=== PATIENT | female | born 1935 | race Caucasian/White ===

== ENCOUNTER 2016-08-23 20:04 | Emergency (ER) | payer MEDICARE, BC ==
[~2016-08-23] VITALS: Ht 160 cm; Wt 63.8 kg
[~2016-08-23 20:04] MED LIST: ACET-2321 PO; ALBU8.5H INH; CALC-1012 PO; CLOP75TA13 PO; FERR324T4 PO; FEXO180T56 PO; FLUT9.9S NAS; LISI10TA7 PO; MOME17SP2 EA NOSTRIL; OMEP-29 PO; PRAV40TA46 PO; TRIM100T PO
--- OUTSIDE RECORDS SUMMARY | 2016-08-23 20:09 | XMS REPORT | Continuity of Care Document ---
Author Author [facility] Organization [facility] Address Unknown Phone Unavailable Support Name Relationship Address Phone ELIER MENDEZ MD Caregiver [address] [place] [address] [place] [phone] AURORA RALPH MD Caregiver [address] [place] [address] DR GUERRA [place] [phone] JOEL KASSIE Next Of Kin Unknown [phone] Insurance Providers Payer Name Policy Number Subscriber Name Relationship Medicare [id number] Theodora Forbes 19 Self [facility] [id number] Theodora Forbes 18 Self Advance Directives Directive Response Recorded Date/Time Advanced Directives Type DPOA for Healthcare 10/17/13 10:33pm Ordered Resuscitation Status Full Code, unverified 10/17/13 9:28pm Resuscitation Documents on File Yes 10/17/13 10:33pm Problems Medical Problems Problem Onset Date Status Influenza B ~10/14/2012 Active Influenza B Unknown Active Hyponatremia ~10/2013 Active Hypoxia ~10/2013 Resolved Influenza B Unknown Active Asthma with acute exacerbation ~10/2013 Resolved Insufficiency, respiratory, acute ~10/2013 Resolved Dehydration ~10/2013 Resolved History of CHF (congestive heart failure) Unknown Active Hypertension Unknown Active Acute sinusitis Unknown Active History of sarcoidosis Unknown Resolved Protein-calorie malnutrition, mild Unknown Active Medications Medication Dose Route Sig Days/Qty Instructions Order Date Discontinued Date Status Salmeterol Xinafoate/Fluticasone 1 Disk IH TWICE A DAY 10/31/09 Active Albuterol Sulfate 8.5 Gm INH Q4H PRN ASTHMA 10/31/09 Active Fexofenadine Hcl 180 Mg PO DAILY 10/31/09 Active Lisinopril/Hydrochlorothiazide 1 Tab PO DAILY 10/31/09 Active Mometasone Furoate 17 Gm NS PRN 10/31/09 10/26/13 Discontinued Omeprazole 20 Mg PO DAILY 03/04/12 Active Furosemide 40 Mg PO DAILY PRN EDEMA 03/04/12 Active Clopidogrel Bisulfate 75 Mg PO DAILY 10/17/13 Active Pravastatin Sodium 40 Mg PO DAILY 10/17/13 Active Ciprofloxacin Hcl 500 Mg PO TWICE A DAY 10/17/13 10/26/13 Discontinued Fluticasone Propionate 16 Gm NS DAILY 30 Days 10/26/13 04/07/14 Discontinued Prednisone 60 Mg PO DAILY 13 Days 10/26/13 10/26/13 Discontinued Mometasone Furoate 1 [place] EA NOSTRIL TWICE A DAY 04/07/14 Active Social History Social History Problem Response Recorded Date/Time Hx Substance Use No 07/23/2014 8:51am Hx Alcohol Use No 07/23/2014 8:51am Has the pt used tobacco in the last 12 months No 08/25/2014 8:31am Tobacco Usage none 10/18/2013 9:19am Query Response Start Date Stop Date Smoking Status Former smoker Hospital Discharge Instructions No hospital discharge instructions. Plan of Care No plan of care. Functional Status Query Response Date Recorded Physical Hygiene Self October 26, 2013 3:51pm Disabilities Hearing Visual October 26, 2013 3:51pm Devices Used Glasses October 26, 2013 3:51pm Dressing Self October 26, 2013 3:51pm Ambulation Self October 26, 2013 3:51pm Diet Self October 26, 2013 3:51pm Mental Status Alert Oriented October 26, 2013 3:51pm Disabilities Hearing Visual October 26, 2013 3:51pm Devices Used Glasses October 26, 2013 3:51pm Physical Hygiene Self October 26, 2013 3:51pm Dressing Self October 26, 2013 3:51pm Ambulation Self October 26, 2013 3:51pm Diet Self October 26, 2013 3:51pm Allergies, Adverse Reactions, Alerts Allergen Type Severity Reaction Status Last Updated hydrocodone bit Adverse Reaction Mild "MAKES ME CRAZY" Active 08/25/14 Penicillin Allergy Unknown UNKNOWN Active 08/25/14 Sulfa (Sulfonamide Antibiotics) Allergy Unknown UNKNOWN Active 08/25/14 Alprazolam Allergy Unknown UNKNOWN Active 08/25/14 Morphine Adverse Reaction Mild "MAKES ME CRAZY" Active 08/25/14 Codeine Adverse Reaction Mild "MAKES ME CRAZY" Active 08/25/14 Cephalexin Allergy Severe DIARRHEA Active 08/25/14 Doxycycline Allergy Unknown UNKNOWN Active 08/25/14 Erythromycin base Allergy Unknown UNKNOWN Active 08/25/14 Immunizations Name Given Type Hx Influenza Vaccination Y 02/2014 Historical Hx Pneumococcal Vaccination Y 02/2014 Historical Hx Influenza Vaccination Y 02/2014 Historical Vital Signs Acute Vital Signs Vital Response Date/Time Temperature (Fahrenheit) 96.6 deg F (96.8 - 99.1) Temperature (Calculated Celsius) 35.54123 degrees C (36.0 - 37.3) Pulse Rate (adult) 72 bpm (60 - 100) Respiratory Rate 16 breaths/min (10 - 20) O2 Sat by Pulse Oximetry 98 % (90 - 100) Oxygen Delivery Method Room Air Blood Pressure 139/67 mm Hg Blood Pressure Source Automatic Cuff Height 5 ft 2.5 in Weight 144 lb Body Mass Index 25.0 kg/m^2 Results Test Source Date Result Interp. Ref. Range Comments Gentamicin Level Trough August 26, 2014 6:12pm 1.5 UG/ML N 0-2 COMMENT DRAW BEFORE 4/9 AM DOSE. PER GENTAMICIN PROTOCOL Alanine Aminotransferase (ALT/SGPT) August 02, 2014 10:55am 21 U/L N 9- 52 CALL RESULTS TO 284-5080 Albumin August 02, 2014 10:55am 4.5 G/DL N 3.5-5.0 CALL RESULTS TO 284- 5080 Albumin/Globulin Ratio August 02, 2014 10:55am 1.4 RATIO N 1.1-2.2 CALL RESULTS TO 284-5080 Alkaline Phosphatase August 02, 2014 10:55am 92 U/L N 38-126 CALL RESULTS TO 284-5080 Anion Gap August 02, 2014 10:55am 18 MEQ/L H 5-15 CALL RESULTS TO 284- 5080 Aspartate Amino Transf (AST/SGOT) August 02, 2014 10:55am 20 U/L N 14-36 CALL RESULTS TO 284-5080 BUN/Creatinine Ratio August 02, 2014 10:55am 24 RATIO N 6-26 CALL RESULTS TO 284-5080 Band Neutrophils # October 21, 2013 4:34am 0.1 T/MM3 - Band Neutrophils % October 21, 2013 4:34am 1.0 % N 0-6 Basophils # (Auto) July 26, 2014 8:36am 0.0 T/MM3 N 0-0.2 Basophils (%) (Auto) July 26, 2014 8:36am 0.4 % N 0-2 Blood Urea Nitrogen August 02, 2014 10:55am 19.0 MG/DL H 7-17 CALL RESULTS TO 284-5080 Calcium Level August 02, 2014 10:55am 10.2 MG/DL N 8.4-10.2 CALL RESULTS TO 284-5080 Calculated Osmolality August 02, 2014 10:55am 270 MOSM/KG N 261-280 CALL RESULTS TO 284-5080 Carbon Dioxide Level August 02, 2014 10:55am 21 MEQ/L L 22-30 CALL RESULTS TO 284-5080 Chemistry Specimen Hemolysis August 02, 2014 10:55am < 15 0-25 0-25: No Hemolysis.26-70: Slight Hemolysis - can falsely elevate K and Urine Protein. 71-285: Moderate Hemolysis - can falsely elevate K, Troponin I, CA 19-9, PTH, CSF GLucose, and Urine Protein, and can falsely decrease Phenytoin. 286-999: Gross Hemolysis - can falsely elevate K, Troponin I, CA 19-9, PTH, CSF Glucose, and Urine Protine, and can falsely decrease Phenytoin. Recommend specimen recollection. Chloride Level August 02, 2014 10:55am 99 MEQ/L N 98-107 CALL RESULTS TO 284-5080 Creatinine August 26, 2014 6:12pm 0.7 MG/DL N 0.7-1.2 COMMENT PER GENTAMICIN PROTOCOL, WITH GENT TROUGH. Eosinophils # (Auto) July 26, 2014 8:36am 0.2 T/MM3 N 0-0.5 Eosinophils # (Manual) October 19, 2013 4:36am 0.1 T/MM3 N 0-0.5 Eosinophils % (Manual) October 19, 2013 4:36am 1.0 % N 0-4 Eosinophils (%) (Auto) July 26, 2014 8:36am 4.5 % H 0-4 Globulin August 02, 2014 10:55am 3.3 G/DL N 2.4-3.6 CALL RESULTS TO 284- 5080 Glomerular Filtration Rate Calc August 26, 2014 6:12pm 81 - COMMENT PER GENTAMICIN PROTOCOL, WITH GENT TROUGH. Glucose Level August 02, 2014 10:55am 136 MG/DL H 65-110 CALL RESULTS TO 284-5080 Hematocrit July 26, 2014 8:36am 42.9 % N 36-46 Hemoglobin July 26, 2014 8:36am 14.1 GM/DL N 12-16 Icterus Index August 02, 2014 10:55am < 2 0-7 CALL RESULTS TO 284-5080 Immature Granulocyte # (Auto) July 26, 2014 8:36am 0.01 T/MM3 N 0.00- 0.03 Immature Granulocyte % (Auto) July 26, 2014 8:36am 0.2 % N 0.0-0.5 Influenza Type A Antigen October 17, 2013 7:45pm Negative - Negative for Flu A protein antigen. Assay sensitivity is90%. Influenza Type B Antigen October 17, 2013 7:45pm Positive - Lab Scanned Report August 02, 2014 12:35pm LAB TEST FORM REQUEST - Lymphocytes # (Auto) July 26, 2014 8:36am 1.1 T/MM3 N 1-4.8 Lymphocytes # (Manual) October 21, 2013 4:34am 0.3 T/MM3 L 1-4.8 Lymphocytes % (Manual) October 21, 2013 4:34am 3.0 % L 23-45 Lymphocytes (%) (Auto) July 26, 2014 8:36am 23.6 % N 23-45 Magnesium Level October 19, 2013 4:36am 1.9 MG/DL N 1.6-2.3 Mean Corpuscular Hemoglobin July 26, 2014 8:36am 29.4 UUG N 26-34 Mean Corpuscular Hemoglobin Concent July 26, 2014 8:36am 32.9 GM/DL N 31-37 Mean Corpuscular Volume July 26, 2014 8:36am 89.6 UM3 N 80-100 Mean Platelet Volume July 26, 2014 8:36am 8.5 UM3 L 9.4-12.4 Monocytes # (Auto) July 26, 2014 8:36am 0.5 T/MM3 N 0-0.8 Monocytes # (Manual) October 21, 2013 4:34am 0.2 T/MM3 N 0-0.8 Monocytes % (Manual) October 21, 2013 4:34am 2.0 % N 0-9.0 Monocytes (%) (Auto) July 26, 2014 8:36am 11.2 % H 0-9.0 Monoscreen October 17, 2013 6:59pm Negative - Neutrophils # (Auto) July 26, 2014 8:36am 2.7 T/MM3 N 1.8-7.7 Neutrophils # (Manual) October 21, 2013 4:34am 8.4 T/MM3 H 1.8-7.7 Neutrophils % (Manual) October 21, 2013 4:34am 94.0 % H 33-66 Neutrophils (%) (Auto) July 26, 2014 8:36am 60.1 % N 33-66 Phosphorus Level October 19, 2013 4:36am 2.6 MG/DL N 2.5-4.5 Platelet Count July 26, 2014 8:36am 236 T/MM3 N 130-400 Potassium Level August 02, 2014 10:55am 4.0 MEQ/L N 3.6-5 CALL RESULTS TO 284-5080 Prealbumin October 18, 2013 5:12am 12.1 MG/DL L 17.6-36.0 COMMENT may use blood in lab Procalcitonin October 18, 2013 5:12am < 0.05 NG/ML - PCT </=0.5 ng/mL - sepsis not likely;PCT >0.5 and </=2 ng/mL - sepsis possible; PCT >2 ng/mL - sepsis likely; PCT >/=10 ng/mL - systemic inflammatory response - sepsis or septic shock highly indicated. RDW Standard Deviation July 26, 2014 8:36am 43.0 FL N 36.9-50.2 Red Blood Count July 26, 2014 8:36am 4.79 M/MM3 N 4.00-5.20 Sodium Level August 02, 2014 10:55am 138 MEQ/L N 134-144 CALL RESULTS TO 284-5080 Thyroid Stimulating Hormone (TSH) October 18, 2013 5:12am 0.26 MIU/L L 0.47 -4.68 COMMENT may use blood in lab Total Bilirubin August 02, 2014 10:55am 0.80 MG/DL N 0.20-1.30 CALL RESULTS TO 284-5080 Total Protein August 02, 2014 10:55am 7.8 G/DL N 6.3-8.2 CALL RESULTS TO 284-5080 Troponin I October 17, 2013 6:59pm < 0.012 ng/ml 0-0.12 Turbidity August 02, 2014 10:55am < 20 0-20 CALL RESULTS TO 284-5080 Urinalysis Comment October 17, 2013 10:45pm Microscopic not ind. - Has specimen been collected/obtained? Y Urine Bacteria August 06, 2009 2:01pm 4+ - AGRICULTURE INTERN Urine Bilirubin October 17, 2013 10:45pm Negative - Has specimen been collected/obtained? Y Urine Blood October 17, 2013 10:45pm Negative - Has specimen been collected/obtained? Y Urine Collection Type October 17, 2013 10:45pm Cleancatch-midstream - Has specimen been collected/obtained? Y Urine Color October 17, 2013 10:45pm Yellow - Has specimen been collected /obtained? Y Urine Culture Indicated August 06, 2009 2:01pm Cult set up - [facility] Urine Glucose (UA) October 17, 2013 10:45pm Negative - Has specimen been collected/obtained? Y Urine Ketones October 17, 2013 10:45pm 1+ H - Has specimen been collected/ obtained? Y Urine Leukocyte Esterase October 17, 2013 10:45pm Negative - Has specimen been collected/obtained? Y Urine Nitrite October 17, 2013 10:45pm Negative - Has specimen been collected/obtained? Y Urine Protein October 17, 2013 10:45pm Negative - Has specimen been collected/obtained? Y Urine RBC August 06, 2009 2:01pm 3-5 /HPF - [facility] Urine Specific [place] October 17, 2013 10:45pm 1.025 - Has specimen been collected/obtained? Y Urine Squamous Epithelial Cells August 06, 2009 2:01pm Moderate - [facility] Urine Turbidity October 17, 2013 10:45pm Sl cloudy - Has specimen been collected/obtained? Y Urine Urobilinogen October 17, 2013 10:45pm 0.2 EU/DL - Has specimen been collected/obtained? Y Urine WBC August 06, 2009 2:01pm 50-200 /HPF - [facility] Urine pH October 17, 2013 10:45pm 6.5 - Has specimen been collected/ obtained? Y Venous Blood Lactate October 17, 2013 6:59pm 1.0 MMOL/L N 0.6-2.2 Vitamin B12 Level October 18, 2013 5:12am 420 PG/ML N 239-931 COMMENT may use blood in lab White Blood Count July 26, 2014 8:36am 4.5 T/MM3 N 4.5-11.0 Blood Culture Blood October 17, 2013 7:05pm NO GROWTH AFTER 5 DAYS Urine Culture Urine, Clean Catch Voided August 06, 2009 2:23pm Escherichia Coli Procedures Procedure Status Date Provider(s) METABOLIC PANEL TOTAL CA completed 06/07/14 ROUTINE VENIPUNCTURE completed 07/26/14 CYSTOSCOPY AND TREATMENT completed 07/26/14 AURORA RALPH MD METABOLIC PANEL TOTAL CA completed 07/26/14 COMPLETE CBC W/AUTO DIFF WBC completed 07/26/14 [id number] ITEM OR SERVICE completed 07/26/14 [id number] ITEM OR SERVICE completed 07/26/14 PROPOFOL INJ 500 MG/50ML completed 07/26/14 [id number]"RINGERS LACTATE INFUSION, UP TO 1000 CC" completed 07/26/14 COMPREHEN METABOLIC PANEL completed 08/02/14 Encounters Encounter Location Date/Time Discharged [facility] 08/31/14 7:30am Registered [facility] 08/02/14 11:08am Registered [facility] 06/07/14 9:26am
[2016-08-23 20:10] VITALS: Ht 160 cm; Wt 63.8 kg
--- OUTSIDE RECORDS SUMMARY | 2016-08-23 20:10 | XMS REPORT | Continuity of Care Document ---
Author Author [facility] Organization [facility] Address Unknown Phone Unavailable Allergies Medications Problems Procedures Results Encounters ACCT No. Visit Date/Time Discharge Status Pt. Type Provider Facility Loc./Unit Complaint [id number] 07/22/2013 10:25:00 07/22/2013 23 :59:59 CLS Outpatient [id number] 07/15/2013 13:56:00 07/15/2013 23 :59:59 CLS Outpatient [id number] 06/22/2013 13:12:00 06/22/2013 23 :59:59 CLS Outpatient [id number] 06/01/2013 15:15:00 06/01/2013 23 :59:59 CLS Outpatient [id number] 05/28/2013 12:00:00 05/28/2013 23 :59:59 CLS Outpatient
--- OUTSIDE RECORDS SUMMARY | 2016-08-23 20:11 | XMS REPORT | Referral Summary ---
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 Name Role Phone Rosette Travis Primary Care Physician [phone] Encounter Date(s): 03/28/16 - 03/28/16 [facility], [address] [place] [id number]- Discharge Diagnosis: Cause of injury, accidental fall Discharge Diagnosis: Acute bacterial sinusitis Discharge Diagnosis: Infected skin tear Discharge Disposition: 01-Home or Self Care Attending Physician: Toña Travis DO Admitting Physician: Toña Travis DO Vital Signs Most recent to 1 oldest [Reference Range]: Temperature Tympanic 37.1 degC [36.6-38.1 degC] (03/28/16 10:31 AM) Peripheral Pulse 73 bpm Rate [60-100 bpm] (03/28/16 10:31 AM) Blood Pressure 104/58 mmHg [90-140/60-90 mmHg] (03/28/16 10:31 AM) SpO2 97 % (03/28/16 10:31 AM) Problem List Condition Effective Dates Status Health Status Informant Allergies(Confirmed) Resolved Asthenia(Confirmed) Active Asthma without Active status asthmaticus (disorder)(Confirmed ) Asthma(Confirmed) Active Bladder muscle Active dysfunction - overactive (disorder)(Confirmed ) Breast 08/2009 Active cancer(Confirmed)1 Cataract Active (disorder)(Confirmed ) Chronic Active trigonitis(Confirmed ) Closed fracture of 05/27/13 Active metacarpal base of finger(Confirmed)2 Congestive heart 09/2009 Active failure (disorder)(Confirmed ) Generalized Active osteoarthritis (disorder)(Confirmed ) Encounter for Active long-term (current) use of other medications(Confirme d) Essential Active hypertension (disorder)(Confirmed ) Female urinary Active stress incontinence (finding)(Confirmed) Gastroesophageal Active reflux disease (disorder)(Confirmed ) History of Resolved sepsis(Confirmed) Hypertension(Confirm Active ed) Hypertonicity of Active bladder(Confirmed) ISD(Confirmed) Resolved Breast 1981 Active cancer(Confirmed)3 Osteoarthritis(Confi Active rmed) Sarcoidosis(Confirme Resolved d) Chronic periscapular Active pain(Confirmed) Shoulder joint pain Active (finding)(Confirmed) Stress Active incontinence(Confirm ed) Transient ischemic 03/04/12 Resolved attack(Confirmed) Urge incontinence of Active urine (finding)(Confirmed) Chicken Active pox(Confirmed) Varicella Resolved zoster(Confirmed) 9:24 CDT - Toña Weiss 22 lymph nodes neg 2WC DOI 05/27/13 FX MCP BASE CLOSED 322 lymph nodes neg Allergies, Adverse Reactions, Alerts Substance Reaction Severity Status ALPRAZolam Active codeine Active doxycycline Active erythromycin Active HYDROcodone Active Keflex Active morphine Active penicillin Active Sulfanilamide Active Xanax1 Active 1PT. REPORTS SHE WAS GIVEN MEDICATION YEARS AGO AND HAD A REACTION. Medications albuterol 2.5 mg/3 mL (0.083%) inhalation solution 2.5 mg 3 mL, Inhalation, q6hr, Shortness of Breath/Wheezing, DX J45.901, # 360 mL, 6 Refill(s), Pharmacy: [id number], 3 mL Inhalation q6hr,PRN: Shortness of Breath/Wheezing,Instr:DX J45.901 Start Date: 06/14/15 Status: Ordered Carol Allergy mg, Oral, Daily, 0 Refill(s) Start Date: 10/30/13 Status: Ordered denosumab 60 mg/mL subcutaneous solution 60 mg, SubCutaneous, q6mo, # 1 mL, 0 Refill(s) Start Date: 10/19/15 Status: Ordered fluticasone 50 mcg/inh nasal spray 2 sprays, Nasal, Daily, # 3 Each, 3 Refill(s), Pharmacy: [facility] Start Date: 10/26/15 Status: Ordered ipratropium 42 mcg/inh (0.06%) nasal spray See Instructions, USE 2 SPRAYS NASALLY THREE TIMES DAILY, # 60 mL, 3 Refill(s), eRx: [facility], USE 2 SPRAYS NASALLY THREE TIMES DAILY Start Date: 03/08/16 Status: Ordered Levaquin 500 mg oral tablet 500 mg 1 tabs, Oral, q24hr, X 10 days, # 10 tabs, 0 Refill(s), Pharmacy: [id number], 1 tabs Oral q24hr,x10 days Start Date: 03/28/16 Stop Date: 04/07/16 Status: Ordered lisinopril 5 mg oral tablet 5 mg 1 tabs, Oral, Daily, # 90 tabs, 0 Refill(s), other reason (Rx) Start Date: 03/28/16 Status: Ordered Miscellaneous DME DME Item MASTECTOMY BRAS, See Instructions, # 4 Each, 0 Refill(s), Supply Start Date: 03/22/15 Status: Ordered omeprazole 20 mg oral delayed release capsule 20 mg 1 caps, Oral, Daily, # 90 caps, 3 Refill(s), Pharmacy: [facility], 1 caps Oral Daily Start Date: 05/25/15 Status: Ordered Plavix 75 mg oral tablet 75 mg 1 tabs, Oral, Daily, # 90 tabs, 3 Refill(s), Pharmacy: [facility], 1 tabs Oral Daily Start Date: 05/17/15 Status: Ordered pravastatin 80 mg oral tablet See Instructions, TAKE 1 TABLET EVERY DAY, # 90 tabs, 3 Refill(s), eRx: [facility], TAKE 1 TABLET EVERY DAY Start Date: 02/15/16 Status: Ordered trimethoprim 100 mg oral tablet 100 mg 1 tabs, Oral, Daily, # 90 tabs, 3 Refill(s), Pharmacy: [facility], 1 tabs Oral Daily Start Date: 05/17/15 Status: Ordered Results No data available for this section Immunizations Vaccine Date Refusal Reason tetanus/diphth/pertuss (Tdap) adult/adol 11/04/14 influenza virus vaccine, inactivated 03/28/16 influenza virus vaccine, inactivated 02/18/15 influenza virus vaccine, inactivated1 02/23/14 influenza virus vaccine, live 02/05/13 influenza virus vaccine, live 03/13/12 influenza virus vaccine, live 03/02/11 pneumococcal 13-valent conjugate vaccine 02/18/15 pneumococcal 23-polyvalent vaccine 02/05/13 pneumococcal 23-polyvalent vaccine 03/13/12 pneumococcal 23-polyvalent vaccine 11/8/07 pneumococcal 23-polyvalent vaccine 04/09/02 pneumococcal 23-polyvalent vaccine 04/18/00 tetanus-diphth toxoids (Td) adult/adol 05/14/06 zoster vaccine live 02/23/14 zoster vaccine live 05/03/08 1Result Comment: [02/23/2014] see scanned doc Procedures Procedure Date Related Diagnosis Body Site Calibration of urethra 07/26/14 Cystoscopy1 07/26/14 Urethral dilatation - female 07/26/14 Bone densimetry normal 10/21/13 Colonoscopy 10/29/11 Mastectomy of right breast 10/31/09 Right Lumpectomy2 08/2009 Mastectomy of left breast 1980 Hysterectomy 1970 Appendectomy Cataract extraction 1Hydrodistention of bladder, SLT laser. 23 nodes neg Social History Social History Type Response Smoking Status Never smoker Assessment and Plan Extracted from: Title: Office Visit Note Author: Toña Travis DO Date: 03/28/16 Assessment/Plan Acute bacterial sinusitis Due to patient's allergies in herhistory specifically in her lungs will go ahead and prescribe the patient's Levaquin. Ordered: Office Visit Level 4 Est 21667 Cause of injury, accidental fall Patient is lightheadedwhen standing and thinks this is causing the fall, we will try decreasing her lisinopril to 5 mg and recheck at her regularly scheduled appointmentin 9 days. Ordered: Office Visit Level 4 Est 07328 Infected skin tear Levaquin as above, this is the best we can do for coverage given the patient's allergy profile,the wound was cleansed today and all tissuethat was devitalized wasdebrided. Xeroform was placed over thewoundand that it was wrapped with gauze and Coban. Patient is instructed to change the Xeroform dailyand we will recheck the wound at her regularly scheduled visit in 9 days. Ordered: Office Visit Level 4 Est 15818 Need for influenza vaccination Given today Ordered: Office Visit Level 4 Est 01675
--- OUTSIDE RECORDS SUMMARY | 2016-08-23 20:11 | XMS REPORT | Referral Summary ---
Author Author [facility] Organization [facility] Address Unknown Phone Unavailable Care Team Providers Care Glacing Machine Tender Name Role Phone Rosette Travis Primary Care Physician [phone] Encounter Date(s): 05/22/16 - 05/22/16 [facility], [address] [place] [address]- Discharge Diagnosis: Hospital discharge follow-up Discharge Disposition: 01-Home or Self Care Attending Physician: Toña Travis DO Admitting Physician: Toña Travis DO Vital Signs Most recent to 1 oldest [Reference Range]: Temperature Tympanic 37.4 degC [36.6-38.1 degC] (05/22/16 3:13 PM) Peripheral Pulse 99 bpm Rate [60-100 bpm] (05/22/16 3:13 PM) Blood Pressure 140/72 mmHg [90-140/60-90 mmHg] (05/22/16 3:13 PM) SpO2 97 % (05/22/16 3:13 PM) Problem List Condition Effective Dates Status Health [...] Chicken Active pox(Confirmed) Varicella Resolved zoster(Confirmed) 9:24 FANNYT - Toña Weiss 22 lymph nodes neg [...] J45.901, # 360 mL, 6 Refill(s), Pharmacy: [facility], 3 mL Inhalation q6hr,PRN: Shortness of Breath/Wheezing,Instr:DX J45.901 Start Date: 06/14/15 Status: Ordered Carol Allergy mg, Oral, Daily, 0 Refill(s) Start Date: 10/30/13 Status: Ordered denosumab 60 mg/mL subcutaneous solution 60 mg, SubCutaneous, q6mo, # 1 mL, 0 Refill(s) Start Date: 10/19/15 Status: Ordered ferrous sulfate 325 mg, Oral, TID, 0 Refill(s) Start Date: 05/17/16 Status: Ordered fluticasone 50 mcg/inh nasal spray 2 sprays, Nasal, Daily, # 3 Each, 3 Refill(s), Pharmacy: [facility] Start Date: 10/26/15 Status: Ordered ipratropium 42 mcg/inh (0.06%) nasal spray See Instructions, USE 2 SPRAYS NASALLY THREE TIMES DAILY, # 60 mL, 3 Refill(s), eRx: [facility], USE 2 SPRAYS NASALLY THREE TIMES DAILY Start Date: 03/08/16 Status: Ordered lisinopril 5 mg oral tablet [...] Daily, # 90 caps, 3 Refill(s), Pharmacy: [facility], 1 caps Oral Daily Start Date: 05/25/15 Status: Ordered Plavix 75 mg oral tablet 75 mg 1 tabs, Oral, Daily, # 90 tabs, 3 Refill(s), Pharmacy: [facility], 1 tabs Oral Daily Start Date: 05/17/15 Status: Ordered pravastatin 80 mg oral tablet See Instructions, TAKE 1 TABLET EVERY DAY, # 90 tabs, 3 Refill(s), eRx: [facility], TAKE 1 TABLET EVERY DAY Start Date: 02/15/16 Status: Ordered trimethoprim 100 mg oral tablet 100 mg 1 tabs, Oral, Daily, # 90 tabs, 3 Refill(s), Pharmacy: [facility], 1 tabs Oral Daily Start Date: 05/17/15 Status: Ordered Ventolin HFA 90 mcg/inh inhalation aerosol 2 puffs, Inhalation, q4hr, as needed for wheezing, # 1 Each, 6 Refill(s), Pharmacy: [facility], PLEASE KEEP ON HOLD FOR PT TO [employer] WHEN NEEDED, 2 puffs Inhalation q4hr,x30 days,PRN:as needed for wheezing Start Date: 05/02/16 Stop Date: 11/28/16 Status: Ordered Results Hematology Most recent to 1 oldest [Reference Range]: WBC [5.0-10.0 5.6 10*3/uL 10*3/uL] (05/22/16 3:08 PM) RBC [3.70-5.20] 4.72 (05/22/16 3:08 PM) Hgb [12.0-16.0 9.3 gm/dL gm/dL] *LOW* (05/22/16 3:08 PM) Hct [37.0-47.0 %] 32.9 % *LOW* (05/22/16 3:08 PM) MCV [80.0-96.0 fL] 69.7 fL *LOW* (05/22/16 3:08 PM) MCH [26.0-34.0 pg] 19.7 pg *LOW* (05/22/16 3:08 PM) MCHC [32.0-36.0 28.3 gm/dL gm/dL] *LOW* (05/22/16 3:08 PM) RDW [0.0-14.5 %] 29.9 % *HI* (05/22/16 3:08 PM) Platelet [150-400 382 10*3/uL 10*3/uL] (05/22/16 3:08 PM) MPV [8.8-14.8 fL] 8.7 fL *LOW* (05/22/16 3:08 PM) Neutrophils [50-70 67 % %] (05/22/16 3:08 PM) Band Man [0-6 %] 1 % (05/22/16 3:08 PM) Lymphocytes [20-40 19 % %] *LOW* (05/22/16 3:08 PM) Monocytes [4-8 %] 10 % *HI* (05/22/16 3:08 PM) Eosinophils [0-6 %] 2 % (05/22/16 3:08 PM) Basophils [0-2 %] 1 % (05/22/16 3:08 PM) Neutro Absolute 3.81 [2.50-7.00] (05/22/16 3:08 PM) Lymph Absolute 1.06 [1.00-4.00] (05/22/16 3:08 PM) Dickens Absolute 0.56 [0.20-0.80] (05/22/16 3:08 PM) Eos Absolute 0.11 [0.00-0.60] (05/22/16 3:08 PM) Baso Absolute 0.06 [0.00-0.30] (05/22/16 3:08 PM) Giant Platelets Occasional *ABN* (05/22/16 3:08 PM) Hypochrom Moderate *ABN* (05/22/16 3:08 PM) Microcyte Present *ABN* (05/22/16 3:08 PM) Tear Cell Occasional *ABN* (05/22/16 3:08 PM) Ovalocytes Moderate *ABN* (05/22/16 3:08 PM) Leblanc Cell Occasional *ABN* (05/22/16 3:08 PM) Schistocyte Occasional *ABN* (05/22/16 3:08 PM) Differential Manual *ABN* (05/22/16 3:08 PM) Immunizations Given and Recorded Vaccine Date Status Refusal Reason tetanus/diphth/pertuss (Tdap) adult/adol 11/04/14 Given influenza virus vaccine, inactivated 03/28/16 Given influenza virus vaccine, inactivated 02/18/15 Given influenza virus vaccine, inactivated1 02/23/14 Recorded influenza virus vaccine, live 02/05/13 Given influenza virus vaccine, live 03/13/12 Given influenza virus vaccine, live 03/02/11 Given pneumococcal 13-valent conjugate vaccine 02/18/15 Given pneumococcal 13-valent conjugate vaccine2 02/05/13 Given pneumococcal 13-valent conjugate vaccine3 03/13/12 Given pneumococcal 23-polyvalent vaccine 02/05/13 Given pneumococcal 23-polyvalent vaccine 03/13/12 Given pneumococcal 23-polyvalent vaccine 03/27/07 Recorded pneumococcal 23-polyvalent vaccine 04/09/02 Recorded pneumococcal 23-polyvalent vaccine 04/18/00 Recorded tetanus-diphth toxoids (Td) adult/adol 05/14/06 Given zoster vaccine live 02/23/14 Given zoster vaccine live 05/03/08 Given 1Result Comment: [02/23/2014] see scanned doc 2Result Comment: [02/10/2015 Uncharted] Uploaded in Error - CC 3Result Comment: [02/10/2015 Uncharted] Uploaded in Error - CC Procedures Procedure Date Related Diagnosis Body Site Calibration of urethra 07/26/14 Cystoscopy1 07/26/14 Urethral dilatation - female 07/26/14 Bone densimetry normal 10/21/13 Colonoscopy 10/29/11 Mastectomy of right breast 10/31/09 Right Lumpectomy2 08/2009 Mastectomy of left breast 1981 Hysterectomy 1970 Appendectomy Cataract extraction 1Hydrodistention of bladder, SLT laser. 23 nodes neg Social History Social History Type Response Smoking Status Never smoker Assessment and Plan Extracted from: Title: TCM Author: Toña Travis DO Date: 05/22/16 Assessment/Plan Anemia Ordered: [facility] 7 Day Disch 01809 Hospital discharge follow-up Ordered: Trans Care [facility] 7 Day Disch 16609 I have discussed colonoscopy with patient but she would like to defer this decision until her next visit. Since her hemoglobin is improvingI will not force the issue at this time. She will have a CBC in 2 weeks and another CBC prior to my appointment in 1 month. We will again revisit the idea of colonoscopy at that time. Patient is tolerating the iron well with no signs of constipation or nausea. She is to return to clinic or present to the emergency department with any worsening symptoms.
--- OUTSIDE RECORDS SUMMARY | 2016-08-23 20:12 | XMS REPORT | Referral Summary ---
Author Author [facility] Organization [facility] Address Unknown Phone Unavailable Care Team Providers Care Admission Liaison Name Role Phone Rosette Travis Primary Care Physician [phone] Encounter VC Date(s): 02/20/16 - 02/20/16 [facility] [address] [place] [address] [place] [id number]- Discharge Diagnosis: Recurrent UTI Discharge Disposition: 01-Home or Self Care Attending Physician: Son Ricketts MD Admitting Physician: Son Ricketts MD Referring Physician: Toña Travis DO Vital Signs Most recent to 1 oldest [Reference Range]: Peripheral Pulse 100 bpm Rate [60-100 bpm] (02/20/16 11:04 AM) Blood Pressure 128/66 mmHg [90-140/60-90 mmHg] (02/20/16 11:04 AM) Problem List Condition Effective Dates Status [...] J45.901, # 360 mL, 6 Refill(s), Pharmacy: [facility], 3 mL Inhalation q6hr,PRN: Shortness of Breath/Wheezing,Instr:DX J45.901 Start Date: 06/14/15 Status: Ordered Carol Allergy mg, Oral, Daily, 0 Refill(s) Start Date: 10/30/13 Status: Ordered denosumab 60 mg/mL subcutaneous solution 60 mg, SubCutaneous, q6mo, # 1 mL, 0 Refill(s) Start Date: 10/19/15 Status: Ordered fluticasone 50 mcg/inh nasal spray 2 sprays, Nasal, Daily, # 3 Each, 3 Refill(s), Pharmacy: [facility] Start Date: 10/26/15 Status: Ordered lisinopril 10 mg oral tablet See Instructions, TAKE 1 TABLET EVERY DAY, # 90 tabs, 1 Refill(s), eRx: [facility], TAKE 1 TABLET EVERY DAY Start Date: 02/15/16 Status: Ordered Miscellaneous DME DME Item MASTECTOMY BRAS, See Instructions, # 4 Each, 0 Refill(s), Supply Start Date: 03/22/15 Status: Ordered omeprazole 20 mg oral delayed release capsule 20 mg 1 caps, Oral, Daily, # 90 caps, 3 Refill(s), Pharmacy: [facility], 1 caps Oral Daily Start Date: 05/25/15 Status: Ordered Plavix 75 mg oral tablet 75 mg 1 tabs, Oral, Daily, # 90 tabs, 3 Refill(s), Pharmacy: [facility], 1 tabs Oral Daily Start Date: 05/17/15 Status: Ordered pravastatin 80 mg oral tablet See Instructions, TAKE 1 TABLET EVERY DAY, # 90 tabs, 3 Refill(s), eRx: [facility], TAKE 1 TABLET EVERY DAY Start Date: 02/15/16 Status: Ordered Singulair 10 mg oral tablet 10 mg 1 tabs, Oral, qPM, # 90 tabs, 0 Refill(s), Pharmacy: [facility], 1 tabs Oral qPM Start Date: 10/13/15 Status: Ordered trimethoprim 100 mg oral tablet 100 mg 1 tabs, Oral, Daily, # 90 tabs, 3 Refill(s), Pharmacy: [facility], 1 tabs Oral Daily Start Date: 05/17/15 Status: Ordered Results Chemistry Most recent to 1 oldest [Reference Range]: Sodium Lvl [135-144 131 mEq/L mEq/L] *LOW* (02/20/16 11:25 AM) Potassium Lvl 4.8 mEq/L [3.5-5.2 mEq/L] (02/20/16 11:25 AM) Chloride [99-111 101 mEq/L mEq/L] (02/20/16 11:25 AM) CO2 [22-31 mEq/L] 26 mEq/L (02/20/16 11:25 AM) AGAP [3-20] 4 (02/20/16 11:25 AM) BUN [10-20 mg/dL] 14 mg/dL (02/20/16 11:25 AM) Glucose Lvl [70-99 76 mg/dL mg/dL] (02/20/16 11:25 AM) Creatinine Lvl 0.69 mg/dL [0.57-1.11 mg/dL] (02/20/16 11:25 AM) eGFR [>60 mL/min] >60 mL/min 1 (02/20/16 11:25 AM) Calcium Lvl 10.1 mg/dL [8.9-10.5 mg/dL] (02/20/16 11:25 AM) 1Result Comment: Multiply eGFR results by 1.21 for race. Urinalysis Most recent to 1 oldest [Reference Range]: UA WBC [0-4] 0-2 (02/20/16 11:58 AM) UA RBC [0-4] 0-4 (02/20/16 11:58 AM) Epithelial Cells 0-2 (02/20/16 11:58 AM) UA Hyal Cast [0-3] 1-3 (02/20/16 11:58 AM) Immunizations Vaccine Date Refusal Reason tetanus/diphth/pertuss (Tdap) adult/adol 11/04/14 influenza virus vaccine, inactivated 02/18/15 influenza virus vaccine, inactivated1 02/23/14 influenza virus vaccine, live 02/05/13 influenza virus vaccine, live 03/13/12 influenza virus vaccine, live 03/02/11 pneumococcal 13-valent conjugate vaccine 02/18/15 pneumococcal 23-polyvalent vaccine 02/05/13 pneumococcal 23-polyvalent vaccine 03/13/12 pneumococcal 23-polyvalent vaccine 03/27/07 pneumococcal 23-polyvalent vaccine 04/09/02 pneumococcal 23-polyvalent vaccine [...] 08/2009 Mastectomy of left breast 1980 Hysterectomy 1969 Appendectomy Cataract extraction 1Hydrodistention of bladder, SLT laser. 23 nodes neg Social History Social History Type Response Smoking Status Never smoker Assessment and Plan Extracted from: Title: Office Visit Note Author: Son Ricketts MD Date: 02/20/16 Assessment/Plan 80-year-old female with recurrent bladder infections, controlled with prophylactic medication trimethoprim. She will continue trimethoprim for another 6 months. We will check her urine today. Patient said she had a history of low sodium in the past and would also like to have her sodium levels checked. We'll order BMP. I'll see her in a year or soonerfor any change in her symptoms.
--- OUTSIDE RECORDS SUMMARY | 2016-08-23 20:12 | XMS REPORT | Referral Summary ---
Author Author [facility], Family [facility] Organization [facility] Address Unknown Phone Unavailable Care Team Providers Care Collections And Archives Director Name Role Phone Rosette Travis Primary Care Physician [phone] Encounter Date(s): 04/06/16 - 04/06/16 [facility], [address] [place] [id number]- Discharge Diagnosis: Asthma without status asthmaticus (disorder) Discharge Diagnosis: Infected skin tear Discharge Diagnosis: Acute bacterial sinusitis Discharge Disposition: 01-Home or Self Care Attending Physician: Toña Travis DO Admitting Physician: Toña Travis DO Vital Signs Most recent to 1 oldest [Reference Range]: Temperature Tympanic 36.9 degC [36.6-38.1 degC] (04/06/16 8:54 AM) Peripheral Pulse 94 bpm Rate [60-100 bpm] (04/06/16 8:54 AM) Respiratory Rate 24 br/min [14-20 br/min] *HI* (04/06/16 8:54 AM) Blood Pressure 140/68 mmHg [90-140/60-90 mmHg] (04/06/16 8:54 AM) SpO2 99 % (04/06/16 8:54 AM) Problem List Condition Effective Dates Status [...] J45.901, # 360 mL, 6 Refill(s), Pharmacy: [facility], 3 mL Inhalation q6hr,PRN: Shortness of Breath/Wheezing,Instr:DX J45.901 Start Date: 06/14/15 Status: Ordered Carol Allergy mg, Oral, Daily, 0 Refill(s) Start Date: 10/30/13 Status: Ordered denosumab 60 mg/mL subcutaneous solution 60 mg, SubCutaneous, q6mo, # 1 mL, 0 Refill(s) Start Date: 10/19/15 Status: Ordered fluticasone 50 mcg/inh nasal spray 2 sprays, Nasal, Daily, # 3 Each, 3 Refill(s), Pharmacy: [facility] Start Date: 10/26/15 Status: Ordered ipratropium 42 mcg/inh (0.06%) nasal spray See Instructions, USE 2 SPRAYS NASALLY THREE TIMES DAILY, # 60 mL, 3 Refill(s), eRx: [facility], USE 2 SPRAYS NASALLY THREE TIMES DAILY Start Date: 03/08/16 Status: Ordered Levaquin 500 mg oral tablet 500 mg 1 tabs, Oral, q24hr, X 10 days, # 10 tabs, 0 Refill(s), Pharmacy: [facility], 1 tabs Oral q24hr,x10 days [...] Daily, # 90 caps, 3 Refill(s), Pharmacy: [facility], 1 caps Oral Daily Start Date: 05/25/15 Status: Ordered Plavix 75 mg oral tablet 75 mg 1 tabs, Oral, Daily, # 90 tabs, 3 Refill(s), Pharmacy: [facility], 1 tabs Oral Daily Start Date: 05/17/15 Status: Ordered pravastatin 80 mg oral tablet See Instructions, TAKE 1 TABLET EVERY DAY, # 90 tabs, 3 Refill(s), eRx: [facility], TAKE 1 TABLET EVERY DAY Start Date: 02/15/16 Status: Ordered trimethoprim 100 mg oral tablet 100 mg 1 tabs, Oral, Daily, # 90 tabs, 3 Refill(s), Pharmacy: [facility], 1 tabs Oral Daily [...] Visit Note Author: Toña Travis DO Date: 04/06/16 Assessment/Plan Acute bacterial sinusitis Take antibiotic until gone, then give this a little bit of time for her body to catch up to her healing process. Gait is normal for the fatigue and other symptoms to last for a while and someone her age. Ordered: Office Visit Level 4 Est 66257 Asthma without status asthmaticus (disorder) Stable. Ordered: Office Visit Level 4 Est 62835 Infected skin tear This is improving. We'll have the patient continue the daily dressing changes and return to clinic in about 2 weeks or sooner if she feels that this is getting worse. Ordered: Office Visit Level 4 Est 66057
--- OUTSIDE RECORDS SUMMARY | 2016-08-23 20:12 | XMS REPORT | Continuity of Care Document ---
Author Author [facility] Organization [facility] Address Unknown Phone Unavailable Support Name Relationship Address Phone ELIER MENDEZ MD Caregiver [address] [place] [address] [place] [phone] AURORA RALPH MD Caregiver [address] [place] [address] [address] [place] [phone] JOEL KASSIE Next Of Kin Unknown [phone] Insurance Providers Payer Name Policy Number Subscriber Name Relationship Medicare [id number] Theodora Forbes 19 Self [facility] [id number] Theodora Forbes 19 Self Advance Directives Directive [...] Days 10/26/13 10/26/13 Discontinued Mometasone Furoate 1 [place] EA NOSTRIL TWICE A DAY 04/07/14 Active Social History Social History Problem Response Recorded Date/Time Chewing Tobacco Status No 07/23/2014 8:51am Hx Substance Use No 07/23/2014 8:51am Hx Alcohol Use No 07/23/2014 8:51am Has the pt used tobacco in the last 12 months No 07/23/2014 8:51am Tobacco Usage none 10/18/2013 9:19am Query Response [...] Adverse Reaction Mild "MAKES ME CRAZY" Active 04/07/14 Penicillin Allergy Unknown UNKNOWN Active 07/23/14 Sulfa (Sulfonamide Antibiotics) Allergy Unknown UNKNOWN Active 07/23/14 Alprazolam Allergy Unknown UNKNOWN Active 07/23/14 Morphine Adverse Reaction Mild "MAKES ME CRAZY" Active 04/07/14 Codeine Adverse Reaction Mild "MAKES ME CRAZY" Active 04/07/14 Doxycycline Allergy Unknown UNKNOWN Active 07/23/14 Erythromycin base Allergy Unknown UNKNOWN Active 07/23/14 Immunizations Name Given Type Hx Influenza Vaccination Y 02/2014 Historical Hx Pneumococcal Vaccination Y 02/2014 Historical Hx Influenza Vaccination Y 02/2014 Historical Vital Signs Acute Vital Signs Vital Response Date/Time Temperature (Fahrenheit) 98.1 deg F (96.8 - 99.1) Temperature (Calculated Celsius) 36.53592 degrees C (36.0 - 37.3) Temperature Source Temporal Pulse Rate (adult) 84 bpm (60 - 100) Respiratory Rate 16 breaths/min (10 - 20) O2 Sat by Pulse Oximetry 97 % (90 - 100) Oxygen Delivery Method Room Air Blood Pressure 132/60 mm Hg Blood Pressure Source Automatic Cuff Height 5 ft 2.5 in Weight 150 lb Body Mass Index 27.0 kg/m^2 Results Test Source Date Result Interp. Ref. Range Comments Alanine Aminotransferase (ALT/SGPT) October 17, 2013 6:59pm 23 U/L N 9-52 Albumin October 19, 2013 4:36am 3.0 G/DL L 3.5-5.0 Albumin/Globulin Ratio October 17, 2013 6:59pm 1.3 RATIO N 1.1-2.2 Alkaline Phosphatase October 17, 2013 6:59pm 76 U/L N 38-126 Anion Gap July 26, 2014 8:36am 9 MEQ/L N 5-15 Aspartate Amino Transf (AST/SGOT) October 17, 2013 6:59pm 20 U/L N 14-36 BUN/Creatinine Ratio July 26, 2014 8:36am 20 RATIO N 6-26 Band Neutrophils # October 21, 2013 4:34am 0.1 T/MM3 - Band Neutrophils % October 21, 2013 4:34am 1.0 % N 0-6 Basophils # (Auto) July 26, 2014 8:36am 0.0 T/MM3 N 0-0.2 Basophils (%) (Auto) July 26, 2014 8:36am 0.4 % N 0-2 Blood Urea Nitrogen July 26, 2014 8:36am 14.0 MG/DL N 7-17 Calcium Level July 26, 2014 8:36am 10.0 MG/DL N 8.4-10.2 Calculated Osmolality July 26, 2014 8:36am 262 MOSM/KG N 261-280 Carbon Dioxide Level July 26, 2014 8:36am 26 MEQ/L N 22-30 Chemistry Specimen Hemolysis July 26, 2014 8:36am < 15 0-25 0-25: No Hemolysis.26-70: Slight [...] decrease Phenytoin. Recommend specimen recollection. Chloride Level July 26, 2014 8:36am 101 MEQ/L N 98-107 Creatinine July 26, 2014 8:36am 0.7 MG/DL N 0.7-1.2 Eosinophils # (Auto) July 26, 2014 8:36am 0.2 T/MM3 N 0-0.5 Eosinophils # (Manual) October 19, 2013 4:36am 0.1 T/MM3 N 0-0.5 Eosinophils % (Manual) October 19, 2013 4:36am 1.0 % N 0-4 Eosinophils (%) (Auto) July 26, 2014 8:36am 4.5 % H 0-4 Globulin October 17, 2013 6:59pm 3.0 G/DL N 2.4-3.6 Glomerular Filtration Rate Calc July 26, 2014 8:36am 81 - Glucose Level July 26, 2014 8:36am 87 MG/DL N 65-110 Hematocrit July 26, 2014 8:36am 42.9 % N 36-46 Hemoglobin July 26, 2014 8:36am 14.1 GM/DL N 12-16 Icterus Index July 26, 2014 8:36am < 2 0-7 Immature Granulocyte # (Auto) July 26, 2014 8:36am 0.01 T/MM3 N 0.00- 0.03 Immature Granulocyte % (Auto) July 26, 2014 8:36am 0.2 % N 0.0-0.5 Influenza Type A Antigen October 17, 2013 7:45pm Negative - Negative for Flu A protein antigen. Assay sensitivity is90%. Influenza Type B Antigen October 17, 2013 7:45pm Positive - Lab Scanned Report June 07, 2014 8:38pm LAB TEST FORM REQUEST [id number] - Lymphocytes # (Auto) July 26, 2014 [...] 8:36am 236 T/MM3 N 130-400 Potassium Level July 26, 2014 8:36am 4.2 MEQ/L N 3.6-5 Prealbumin October 18, 2013 5:12am 12.1 MG/DL [...] 8:36am 4.79 M/MM3 N 4.00-5.20 Sodium Level July 26, 2014 8:36am 136 MEQ/L N 134-144 Thyroid Stimulating Hormone (TSH) October 18, 2013 5:12am 0.26 MIU/L L 0.47 -4.68 COMMENT may use blood in lab Total Bilirubin October 17, 2013 6:59pm 0.60 MG/DL N 0.20-1.30 Total Protein October 17, 2013 6:59pm 7.0 G/DL N 6.3-8.2 Troponin I October 17, 2013 6:59pm < 0.012 ng/ml 0-0.12 Turbidity July 26, 2014 8:36am < 20 0-20 Urinalysis Comment October 17, 2013 10:45pm Microscopic not ind. - Has specimen been collected/obtained? Y Urine Bacteria August 06, 2009 2:01pm 4+ - [facility] Urine Bilirubin October 17, 2013 10:45pm Negative [...] 06, 2009 2:01pm Cult set up - [facility] Urine Glucose (UA) October 17, 2013 10:45pm [...] August 06, 2009 2:01pm 3-5 /HPF - [facility]OURNEY[facility] Urine Specific [place] October 17, 2013 10:45pm 1.025 - Has specimen been collected/obtained? Y Urine Squamous Epithelial Cells August 06, 2009 2:01pm Moderate - [facility] Urine Turbidity October 17, 2013 10:45pm Sl cloudy - Has specimen been collected/obtained? Y Urine Urobilinogen October 17, 2013 10:45pm 0.2 EU/DL - Has specimen been collected/obtained? Y Urine WBC August 06, 2009 2:01pm 50-200 /HPF - [facility] Urine pH October 17, 2013 10:45pm 6.5 [...] Escherichia Coli Procedures Procedure Status Date Provider(s) GUSTAVO SUBQ TISSUE 20 SQ CM/< completed 04/27/14 [id number]"EQUAL TO 48 SQ. IN., WITHOUT ADHESIVE BORDER, EACH DR completed E&M LEVEL - FACILITY completed 04/27/14 E&M LEVEL - FACILITY completed 05/25/14 METABOLIC PANEL TOTAL CA completed 06/07/14 Encounters Encounter Location Date/Time Registered [facility] 06/07/14 9:26am Registered [facility] 05/25/14 8:24am Registered [facility] 04/27/14 7:53am
--- OUTSIDE RECORDS SUMMARY | 2016-08-23 20:12 | XMS REPORT | Referral Summary ---
Author Author [facility] [place], Family [facility] Organization [facility] [place] [facility] Address Unknown Phone Unavailable Care Team Providers Care Flag Car Driver Name Role Phone Rosette Travis Primary Care Physician [phone] Encounter [facility] [phone] Date(s): 04/20/16 - 04/20/16 [facility] [place], [address] [place] [id number]- Discharge Diagnosis: Asthma without status asthmaticus (disorder) Discharge Diagnosis: Exertional shortness of breath Discharge Diagnosis: Skin tear of right upper extremity Discharge Diagnosis: Sinus pressure Discharge Disposition: 01-Home or Self Care Attending Physician: Toña Travis DO Admitting Physician: Toña Travis DO Vital Signs Most recent to 1 oldest [Reference Range]: Temperature Tympanic 36.5 degC [36.6-38.1 degC] *LOW* (04/20/16 2:23 PM) Peripheral Pulse 107 bpm Rate [60-100 bpm] *HI* (04/20/16 2:23 PM) Respiratory Rate 30 br/min [14-20 br/min] *HI* (04/20/16 2:23 PM) Blood Pressure 136/60 mmHg [90-140/60-90 mmHg] (04/20/16 2:23 PM) SpO2 98 % (04/20/16 2:23 PM) Problem List Condition Effective Dates Status [...] J45.901, # 360 mL, 6 Refill(s), Pharmacy: [id number], 3 mL Inhalation q6hr,PRN: Shortness of Breath/Wheezing,Instr:DX J45.901 Start Date: 06/14/15 Status: Ordered Carol Allergy mg, Oral, Daily, 0 Refill(s) Start Date: 10/30/13 Status: Ordered denosumab 60 mg/mL subcutaneous solution 60 mg, SubCutaneous, q6mo, # 1 mL, 0 Refill(s) Start Date: 10/19/15 Status: Ordered fluticasone 50 mcg/inh nasal spray 2 sprays, Nasal, Daily, # 3 Each, 3 Refill(s), Pharmacy: [facility] Start Date: 10/26/15 Status: Ordered ipratropium 42 mcg/inh (0.06%) nasal spray See Instructions, USE 2 SPRAYS NASALLY THREE TIMES DAILY, # 60 mL, 3 Refill(s), eRx: [facility], USE 2 SPRAYS NASALLY [...] Daily, # 90 caps, 3 Refill(s), Pharmacy: [facility], 1 caps Oral Daily Start Date: 05/25/15 Status: Ordered Plavix 75 mg oral tablet 75 mg 1 tabs, Oral, Daily, # 90 tabs, 3 Refill(s), Pharmacy: [facility], 1 tabs Oral Daily Start Date: 05/17/15 Status: Ordered pravastatin 80 mg oral tablet See Instructions, TAKE 1 TABLET EVERY DAY, # 90 tabs, 3 Refill(s), eRx: [facility], TAKE 1 TABLET EVERY DAY Start Date: 02/15/16 Status: Ordered trimethoprim 100 mg oral tablet 100 mg 1 tabs, Oral, Daily, # 90 tabs, 3 Refill(s), Pharmacy: [facility], 1 tabs Oral Daily [...] Visit Note Author: Toña Travis DO Date: 04/20/16 Assessment/Plan Asthma without status asthmaticus (disorder) Patient's exam reveals no wheezing. Her O2 sat is adequate even walking up and down the hallway she maintained an adequate O2 sat. We will try to get her in with her asthma doctor to seeif there something more that can be done to help her. Ordered: Office Visit Level 4 Est 12328 Exertional shortness of breath She has been recently evaluated by Dr. Woodard who felt this was a long issue. Her O2 sat is adequate at rest and with activity. In the office today. We will try to get her in with her asthma doctor for further recommendations. Ordered: Office Visit Level 4 Est 75942 Sinus pressure Patient requests CT scan as this is been a chronic issue for herand she believes that it is the source of all of her problems. Ordered: CT Sinus w/o Contrast Office Visit Level 4 Est 77619 Skin tear of right upper extremity This has almost entirely healed and requires no more follow-up. Ordered: Office Visit Level 4 Est 66911
--- OUTSIDE RECORDS SUMMARY | 2016-08-23 20:13 | XMS REPORT | Continuity of Care Document ---
Author Author [facility] Organization [facility] Address Unknown Phone Unavailable Support Name Relationship Address Phone NIMESH PEOPLES MD Caregiver [address] [place] [id number] Unavailable NIMESH PEOPLES MD Caregiver [address] [place] [address] Unavailable SEPTEMBERPERLA DO Caregiver [address] [place] [address] Unavailable RAIN TRAVIS DO Caregiver Unknown Unavailable KASSIE MALDONADO Next Of Kin Unknown [phone] Insurance Providers Guarantor Theodora Forbes Address [address] [place] [address] Email DENIED/NO TO PT [facility] Policy Number [id number] Subscriber's Name MarianronakJazzyTheodora J Relationship 18 Self Group Number [id number] Group Name PLANF Effective Date 05 Payer Medicare Policy Number [id number] Subscriber's Name Theodora Forbes Jodi Relationship 18 Self Effective Date 01 Advance Directives Directive Response Recorded Date/Time Advanced Directives Type DPOA for Healthcare 10/17/13 10:33pm Ordered Resuscitation Status Full Code, unverified 10/17/13 9:28pm Resuscitation Documents on File Yes 10/17/13 10:33pm DPOA for Healthcare Only Y KHUSHBOO GARCÍA 05/14/16 6:57pm Living Will Yes 05/14/16 5:35pm Problems Active Problems Medical Problem Onset Date Status Asthma Unknown Asthma with acute exacerbation ~10/2013 Resolved Breast cancer Unknown Dehydration ~10/2013 Resolved GERD (gastroesophageal reflux disease) Unknown History of CHF (congestive heart failure) Unknown Chronic History of sarcoidosis Unknown Resolved Hypertension Unknown Chronic Hyponatremia ~10/2013 Acute Hypoxia ~10/2013 Resolved Influenza B ~10/14/2012 Acute Influenza B Unknown Acute Influenza B Unknown Acute Insufficiency, respiratory, acute ~10/2013 Resolved Protein-calorie malnutrition, mild Unknown Acute Systolic murmur Unknown Past Problems Medical Problem Onset Date Acute sinusitis Unknown Anemia Unknown Medications Current Home Medications Medication Dose Units Route Directions Days Qty Instructions Start Date Acetaminophen (Tylenol) 325 Mg Tablet 325 Mg Oral Every 4 Hours Prn as needed for Pain 04/29/16 Albuterol Sulfate (Proair Hfa 90 Mcg/Actuation) 8.5 Gm Hfa.aer.ad 1 Puff Inhalation Every 6 Hours as needed for Shortness Of Air 05/14/16 Calcium Carb & Cit/Vitamin D3 (Calcium + D3 Er Tablet) 1 Each Tablet.er 1 Tab Oral Daily 04/29/16 Clopidogrel Bisulfate (Plavix) 75 Mg Tablet 75 Mg Oral Daily Ferrous Sulfate 324 Mg Tablet.dr 324 Mg Oral Three Times A Day 30 Days 90 Tablet 05/16/16 Fexofenadine Hcl (Carol) 180 Mg Tablet 180 Mg Oral Daily Fluticasone Propionate (Flonase Allergy Relief 50 Mcg/Actuation Nasal) 9.9 Ml Alba.susp 1 Alba Intranasal Daily 05/14/16 Lisinopril 10 Mg Tablet 5 Mg Oral Daily 05/14/16 Mometasone Furoate (Nasonex) 120 Alba/17 G Alba 2 Alba Each Nostril Daily 05/14/16 Omeprazole (Prilosec) 20 Mg Capsule.dr 20 Mg Oral Daily 03/04/12 Pravastatin Sodium 40 Mg Tablet 40 Mg Oral Daily 10/17/13 Trimethoprim 100 Mg Tablet 100 Mg Oral Bedtime 05/14/16 Past Home Medications Medication Directions Ordered Status Ciprofloxacin Hcl (Cipro) 500 Mg Tablet, 500 Mg Oral Twice A Day 10/17/13 Discontinued Fluticasone Propionate (Flonase) 16 Gm Alba.susp, 16 Gm Nasal Daily Discontinued Mometasone Furoate (Nasonex) 17 Gm Alba, 17 Gm Nasal as needed 10/31/09 Discontinued Prednisone 20 Mg Tablet, 60 Mg Oral Daily 10/26/13 Discontinued Social History Social History Problem Response Recorded Date/Time Onset Date Status Reason for Hospitalization anemia 05/16/2016 3:02pm Not Applicable Not Applicable Hx Substance Use No 05/14/2016 3:46pm Not Applicable Not Applicable Hx Alcohol Use No 05/14/2016 3:46pm Not Applicable Not Applicable Has the pt used tobacco in the last 12 months No 05/14/2016 5:38pm Not Applicable Not Applicable Tobacco Usage none 10/18/2013 9:19am Not Applicable Not Applicable Query Response Start Date Stop Date Smoking Status Former smoker Hospital Discharge Instructions Instructions: Care Instructions: Reason for Hospitalization: anemia I was in the hospital because (patient own words): HAVING TROUBLE BREATHING, NAUSEATED, CHEST TIGHTNESS, I FELT SICK Discharge Diet: regular diet Discharge Activity: Activity as tolerated Follow Up Appointments: Please schedule follow-up appointment with primary care provider, Dr. Travis for 1 week follow-up. Will need to discuss possible consultation with surgeon for outpatient colonoscopy. Patient will need a CBC at this time <FOLLOW UP APPOINTMENT WITH DR. TRAVIS ON MAY 22 AT 3:20PM. PHONE NUMBER > Pending Lab / Results: No Pending Lab Patient Instructions: Take iron supplements 3 times a day. Monitor carefully for any signs of acute bleeding. Follow-up with Dr. Travis in one week, will need blood draw. CBC at that time. Will need to discuss further regarding possible consultation with general surgeon for colonoscopy Wound/Incision Care: N/A Pain Management/Treatment: Tylenol as needed for pain control Expected Signs/Symptoms: continued strengthening Notify Physician If: Active bleeding in stools, urine, or emesis. Abdominal pain, shortness of breath or other concerning symptoms. During Business Hours:: Please call the physician's office at [phone] After Business Hours:: Please call [phone] and have the video presentation operator page the physician. Condition at time of discharge: Good Plan of Care Discharge Date 05/16/16 3:54pm Disposition 01 DISCHARGED HOME, SELF-CARE Instructions/Education Provided [facility] Congestive Heart Failure Anemia Prescriptions See Medication Section Care Plan and Goals See Discharge Instructions Section Functional Status Query Response Date Recorded Mobility Status Ambulatory w/assist May 16, 2016 3:02pm Activity Limitations Fatigue May 16, 2016 3:02pm Feeding Ability Independent May 16, 2016 3:02pm Toileting Ability Independent May 16, 2016 3:02pm Grooming Ability Independent May 16, 2016 3:02pm Dressing Ability Independent May 16, 2016 3:02pm Driving Ability Independent May 16, 2016 3:02pm Housework Ability Independent May 16, 2016 3:02pm Meal Preparation Ability Independent May 16, 2016 3:02pm Stair Climbing Ability Independent May 16, 2016 3:02pm Ability to complete ADL's impeded by No change May 16, 2016 3:02pm Cognitive/Perceptual Impairments None May 16, 2016 3:02pm Allergies, Adverse Reactions, Alerts Allergen Type Severity Reaction Status Last Updated hydrocodone bit Adverse Reaction Mild "MAKES ME CRAZY" Active 05/14/16 Penicillin Allergy Unknown UNKNOWN Active 05/14/16 Sulfa (Sulfonamide Antibiotics) Allergy Unknown UNKNOWN Active 05/14/16 Alprazolam Allergy Unknown UNKNOWN Active 05/14/16 Morphine Adverse Reaction Mild "MAKES ME CRAZY" Active 05/14/16 Codeine Adverse Reaction Mild "MAKES ME CRAZY" Active 05/14/16 Cephalexin Allergy Severe DIARRHEA Active 05/14/16 Doxycycline Allergy Unknown UNKNOWN Active 05/14/16 Erythromycin base Allergy Unknown UNKNOWN Active 05/14/16 Immunizations Query Response on File Recorded Date/Time Hx Influenza Vaccination Y 03/201605/14/16 5:38pm Hx Pneumococcal Vaccination Y 02/201405/14/16 5:38pm Hx Influenza Vaccination Y 03/201605/14/16 5:38pm Influenza Vaccine Hx 03/201605/15/16 11:58am Vital Signs Acute Vital Signs Vital Response Date/Time Temperature (Fahrenheit) 98.0 deg F (96.8 - 99.1) 05/16/2016 12:03pm Temperature (Calculated Celsius) 36.55707 degrees C (36.0 - 37.3) 05/16/2016 12:03pm Pulse Rate (adult) 93 bpm (60 - 100) 05/16/2016 12:03pm Respiratory Rate 18 breaths/min (10 - 20) 05/16/2016 12:03pm O2 Sat by Pulse Oximetry 95 % (90 - 100) 05/16/2016 12:03pm Oxygen Delivery Method Room Air 05/16/2016 12:03pm Blood Pressure 154/68 mm Hg 05/16/2016 12:03pm Blood Pressure Source Automatic Cuff 05/16/2016 12:03pm Height (Feet) 5 feet 05/15/2016 8:58am Height (Inches) 1.00 inches 05/15/2016 8:58am Weight (Kilograms) 64.100 kg 05/16/2016 7:38am Body Mass Index (BMI) 26.7 05/14/2016 5:33pm Results Laboratory Results Test Name Result Units Flags Reference Collection Date/Time Result Date/ Time Comments White Blood Count 5.4 T/MM3 4.5-11.0 05/15/2016 3:15am 05/15/2016 3: 43am Red Blood Count 3.83 M/MM3 L 4.00-5.20 05/15/2016 3:15am 05/15/2016 3: 43am Hemoglobin 8.9 GM/DL L 12-16 05/16/2016 12:15pm 05/16/2016 12:27pm Hematocrit 31.5 % L 36-46 05/16/2016 12:15pm 05/16/2016 12:27pm Mean Corpuscular Volume 64.2 UM3 L 80-100 05/15/2016 3:15am 05/15/2016 3 :43am Mean Corpuscular Hemoglobin 17.5 UUG L 26-34 05/15/2016 3:15am 2015 3:43am Mean Corpuscular Hemoglobin Concent 27.2 GM/DL L 31-37 05/15/2016 3:15am 05/15/2016 3:43am RDW Standard Deviation 51.7 FL H 36.9-50.2 05/15/2016 3:15am 05/15/2016 3:43am Platelet Count 340 T/MM3 130-400 05/15/2016 3:15am 05/15/2016 3:43am Mean Platelet Volume 9.1 UM3 L 9.4-12.4 05/15/2016 3:15am 05/15/2016 3: 43am Neutrophils (%) (Auto) 61.5 % 33-66 05/14/2016 4:04pm 05/14/2016 4: 14pm Lymphocytes (%) (Auto) 24.6 % 23-45 05/14/2016 4:04pm 05/14/2016 4: 14pm Monocytes (%) (Auto) 12.0 % H 0-9.0 05/14/2016 4:04pm 05/14/2016 4:14pm Eosinophils (%) (Auto) 1.2 % 0-4 05/14/2016 4:04pm 05/14/2016 4:14pm Basophils (%) (Auto) 0.5 % 0-2 05/14/2016 4:04pm 05/14/2016 4:14pm Immature Granulocyte % (Auto) 0.2 % 0.0-0.5 05/14/2016 4:04pm 2015 4:14pm Absolute Neutrophils (auto) 2.6 T/MM3 1.8-7.7 05/14/2016 4:04pm 2015 4:14pm Absolute Lymphocytes (auto) 1.0 T/MM3 1-4.8 05/14/2016 4:04pm 2015 4:14pm Absolute Monocytes (auto) 0.5 T/MM3 0-0.8 05/14/2016 4:04pm 05/14/2016 4:14pm Absolute Eosinophils (auto) 0.1 T/MM3 0-0.5 05/14/2016 4:04pm 2015 4:14pm Absolute Basophils (auto) 0.0 T/MM3 0-0.2 05/14/2016 4:04pm 05/14/2016 4:14pm Absolute Immature Granulocyte (auto 0.01 T/MM3 0.00-0.03 05/14/2016 4: 04pm 05/14/2016 4:14pm Absolute Reticulocyte Count 0.0695 T/MM3 0.0300-0.0900 05/14/2016 4: 04pm 05/14/2016 7:31pm Percent Reticulocyte Count 1.8 % H 0.6-1.7 05/14/2016 4:04pm 05/14/2016 7:31pm Immature Reticulocyte Fraction 9.4 % 3.3-14.5 05/14/2016 4:04pm 2015 7:31pm Reticulocyte Hgb Content (CHr) 13.8 PG L 30.8-36.6 05/14/2016 4:04pm 7:31pm Icterus Index < 2 0-7 05/16/2016 4:27am 05/16/2016 4:56am Chemistry Specimen Hemolysis 24 0-25 05/16/2016 4:27am 05/16/2016 4: 56am 0-25: Specimen Exhibited No Hemolysis. Turbidity < 20 0-20 05/16/2016 4:27am 05/16/2016 4:56am Sodium Level 132 MEQ/L L 134-144 05/16/2016 4:27am 05/16/2016 4:56am Potassium Level 4.4 MEQ/L 3.6-5 05/16/2016 4:05/16/2016 4:56am Chloride Level 99 MEQ/L 98-107 05/16/2016 4:05/16/2016 4:56am Carbon Dioxide Level 27 MEQ/L 22-30 05/16/2016 4:05/16/2016 4: 56am Anion Gap 6 MEQ/L 5-15 05/16/2016 4:05/16/2016 4:56am Blood Urea Nitrogen 8.0 MG/DL 7-17 05/16/2016 4:05/16/2016 4:56am Creatinine 0.6 MG/DL L 0.7-1.2 05/16/2016 4:05/16/2016 4:56am BUN/Creatinine Ratio 13 RATIO 6-05/16/2016 4:05/16/2016 4:56am Glomerular Filtration Rate Calc 96 05/16/2016 4:05/16/2016 4: 56am Glucose Level 83 MG/DL 65-110 05/16/2016 4:05/16/2016 4:56am Calculated Osmolality 252 MOSM/KG L 261-280 05/16/2016 4:2015 4:56am Calcium Level 9.7 MG/DL 8.4-10.2 05/16/2016 4:05/16/2016 4:56am Phosphorus Level 3.4 MG/DL 2.5-4.5 05/16/2016 4:05/16/2016 4:56am Albumin 3.3 G/DL L 3.5-5.0 05/16/2016 4:05/16/2016 4:56am Troponin I < 0.012 ng/ml 0-0.12 05/14/2016 4:04pm 05/14/2016 4:35pm Troponin values with a difference of 55% increase from orginal troponin value represent a true biological DELTA value. (%increase Calc=Orginal Troponin value, divided by subsequent Troponin value, multiplied by 100) C-Reactive Protein < 5.0 MG/L 0-9 05/14/2016 4:04pm 05/14/2016 8:16pm Magnesium Level 2.2 MG/DL 1.6-2.3 05/15/2016 3:15am 05/15/2016 3:37am Iron Level 17 UG/DL L 37-170 05/14/2016 4:04pm 05/16/2016 2:31am Total Iron Binding Capacity 473 UG/DL 261-497 05/14/2016 4:04pm 2015 2:40am Percent Iron Saturation 4 % L 9-55 05/14/2016 4:04pm 05/16/2016 2:40am Ferritin 3.08 NG/ML L 11-264 05/14/2016 4:04pm 05/16/2016 3:11am Thyroid Stimulating Hormone (TSH) 1.69 MIU/L 0.47-4.68 05/14/2016 4: 04pm 05/14/2016 7:56pm Stool Occult Blood NEGATIVE 05/15/2016 8:45pm 05/15/2016 8:53pm Adenovirus (PCR) NEGATIVE NEGATIVE 05/14/2016 10:40pm 05/15/2016 6: 53am Coronavirus Type 229E (PCR) NEGATIVE NEGATIVE 05/14/2016 10:40pm 6:53am Coronavirus Type HKU1 (PCR) NEGATIVE NEGATIVE 05/14/2016 10:40pm 6:53am Coronavirus Type NL63 (PCR) NEGATIVE NEGATIVE 05/14/2016 10:40pm 6:53am Coronavirus Type OC43 (PCR) NEGATIVE NEGATIVE 05/14/2016 10:40pm 6:53am Human Metapneumovirus (PCR) NEGATIVE NEGATIVE 05/14/2016 10:40pm 6:53am Enterovirus/Rhinovirus (PCR) NEGATIVE NEGATIVE 05/14/2016 10:40pm 6:53am Influenza Virus Type A (PCR) NEGATIVE NEGATIVE 05/14/2016 10:40pm 6:53am Influenza Virus Type B (PCR) NEGATIVE NEGATIVE 05/14/2016 10:40pm 6:53am Parainfluenza Type 1 (PCR) NEGATIVE NEGATIVE 05/14/2016 10:40pm 05/15 6:53am Parainfluenza Type 2 (PCR) NEGATIVE NEGATIVE 05/14/2016 10:40pm 05/15 6:53am Parainfluenza Type 3 (PCR) NEGATIVE NEGATIVE 05/14/2016 10:40pm 05/15 6:53am Parainfluenza Type 4 (PCR) NEGATIVE NEGATIVE 05/14/2016 10:40pm 05/15 6:53am Respiratory Syncytial Virus (PCR) NEGATIVE NEGATIVE 05/14/2016 10: 40pm 05/15/2016 6:53am Bordetella parapertussis DNA (PCR) NEGATIVE NEGATIVE 05/14/2016 10: 40pm 05/15/2016 6:53am Chlamydia pneumoniae DNA (PCR) NEGATIVE NEGATIVE 05/14/2016 10:40pm 05/15/2016 6:53am Mycoplasma pneumoniae (PCR) NEGATIVE NEGATIVE 05/14/2016 10:40pm 6:53am Blood Smear Pathologist Review SENT FOR REVIEW 05/14/2016 4:04pm 8:26pm Name: THEODORA FORBES Unit #: [id number] : 1935 Sex: F DISCHARGE SUMMARY Admit Date: 05/14/16 Report #: [id number] [facility] RAOY JUAREZ V DARLING 05/16/16 1357: General Date Date DATE: 05/16/16 TIME: 13:53 Attending Physician Nimesh Peoples MD Admitting Physician Nimesh Peoples MD Consulting Physician None Admitting Diagnosis anemia Discharge Diagnosis Anemia- Improved Procedures None Laboratory Laboratory Tests Test 05/15/16 03:15 05/15/16 14:42 05/15/16 20:45 05/16/16 04:27 White Blood Count 5.4T/MM3 (4.5-11.0) Red Blood Count 3.83M/MM3 (4.00-5.20) Hemoglobin 6.7GM/DL (12-16) 8.7GM/DL (12-16) 8.1GM/DL (12-16) Hematocrit 24.6% (36-46) 30.5% (36-46) 28.6% (36-46) Mean Corpuscular Volume 64.2UM3 (80-100) Mean Corpuscular Hemoglobin 17.5UUG (26-34) Mean Corpuscular Hemoglobin Concent 27.2GM/DL (31-37) RDW Standard Deviation 51.7FL (36.9-50.2) Platelet Count 340T/MM3 (130-400) Mean Platelet Volume 9.1UM3 (9.4-12.4) Turbidity < 20 (0-20) < 20 (0-20) Sodium Level 132MEQ/L (134-144) 132MEQ/L (134-144) Potassium Level 4.9MEQ/L (3.6-5) 4.4MEQ/L (3.6-5) Chloride Level 102MEQ/L (98-107) 99MEQ/L (98-107) Carbon Dioxide Level 26MEQ/L (22-30) 27MEQ/L (22-30) Anion Gap 4MEQ/L (5-15) 6MEQ/L (5-15) Blood Urea Nitrogen 11.0MG/DL (7-17) 8.0MG/DL (7-17) Creatinine 0.7MG/DL (0.7-1.2) 0.6MG/DL (0.7-1.2) Glomerular Filtration Rate Calc 81 96 BUN/Creatinine Ratio 16RATIO (6-26) 13RATIO (6-26) Glucose Level 90MG/DL (65-110) 83MG/DL (65-110) Calculated Osmolality 254MOSM/KG (261-280) 252MOSM/KG (261-280) Calcium Level 9.8MG/DL (8.4-10.2) 9.7MG/DL (8.4-10.2) Phosphorus Level 3.2MG/DL (2.5-4.5) 3.4MG/DL (2.5-4.5) Magnesium Level 2.2MG/DL (1.6-2.3) Icterus Index < 2 (0-7) < 2 (0-7) Albumin 3.4G/DL (3.5-5.0) 3.3G/DL (3.5-5.0) Chemistry Specimen Hemolysis < 15 (0-25) 24 (0-25) Stool Occult Blood Negative Test 05/16/16 12:15 Hemoglobin 8.9GM/DL (12-16) Hematocrit 31.5% (36-46) Microbiology None Radiology 05/14/16-chest x-ray-no acute cardiopulmonary findings History of Present Illness is a 81 y.o. female with PMH significant for HTN, CHF, GERD, Asthma, Breast cancer s/p chemo and radiation now in remission who presents for nausea, sinus congestion, fatigue and upset stomach for the last week. Pt also reports chest tightness for the last few days that is substernal but does not radiate anywhere. Chest pressure is possibly worse with activity and does improve with rest. Denies any diaphoresis. Denies any diarrhea, vomiting. Pt denies any melena, hematochezia, hematemesis. Reports last colonoscopy was ~5 years ago and is unclear about the findings but that she was told to repeat in 5 years. Denies any hx of ulcers or EGD. Denies weight loss or night sweats. Denies any epigastric pain or pain related to eating. Reports she has indigestion sometimes with eating but that has been going on for a while and that has been labeled with GERD but not any worse recently. Pt does have some sob and wheezing but it's intermittent. Currently she does feel some sob, especially with activity. 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 Pt is on a tight budget so she sometimes has trouble getting the rx' s that she needs. Hospital Course A/P Problem List Microcytic Anemia -Likely GI source vs. myelodysplastic syndrome -Hgb 6, MCV 60 on presentation-->Likely iron deficiency, likely chronic bleed as mcv is very low, likely good candidate for IV iron depending on results -Iron panel, FOBT-->pending, will need colonoscopy as outpatient -WBC 4.2-->5.4 today, wbc count improved so unlikely pancytopenia picture -retic count indicates hyperproliferation so likely some bone marrow component, peripheral smear pending -Hgb 6.7 after 1 unit-->Transfuse 1 additional unit Typical/atypical chest pain -Anemia vs. Angina (or possibly both) vs. Asthma -Unclear with hx if meets 3/3 or 2/3 criteria for typical cp -ECG with RBBB and non-specific ST changes, troponin negative -Would benefit from transfusion, will need cardiac stress testing as outpatient , put on tele Mild Asthma exacerbation -URI vs. Allergies -Order peak flow, viral resp panel negative -On advair and PRN duonebs at home -Will do RCAT, cont. advair, cont. flonase and carol -Hold off on steroids for now HTN -Continue home lisinopril 10mg -Goal at pt's age would be systolic <150 Sarcoidosis? -Pt reports hx, not on any current tx's -Could have upper resp involvement and would explain chronic sinus sx's -Also would explain difficult to control/worsening asthma sx's, also explains fatigue -Will need more info from medical chart, can consider steroid therapy Breast Cancer -Follows with oncology once/yr -In remission, not on any current therapy CHF -Unclear dx, pt reports she see's -Will need to be careful with fluid administration Systolic murmur -07/23, pt reports this is new for her -indication for echo GERD -Cont. home prilosec Ppx -DVT-Lovenox Dispo Daily Summaries 05/15/2016 Pt feels a bit better after 1 unit of pRBC yesterday. Hgb at 6.7 today, since still somewhat symptomatic and Hgb <7 will plan for another 1 unit today. Calculated retic index likely demonstrates bone marrow component but likely somewhat expected with an 81 y.o. Iron studies pending, fobt pending. Will likely give IV iron today if iron stores severely low as expected and then can be set up through infusion center. Will monitor after transfusion and IV iron today and can likely be discharged tomorrow. Pt will need colonoscopy as outpatient and would also benefit from a cardiac stress test. 05/16/16- discharge Patient is seen and evaluated today. She is alert and oriented and doing well. Did recheck serial hemoglobins. Following blood transfusion. Hemoglobin today continues to trend up at 8.9 this afternoon. Plan of care discussed with Dr. Peoples and patient. Patient is stable for discharge home. She has had no evidence of acute bleeding during her hospitalization. Given the low iron s uspect that this is iron deficiency anemia. Discharge patient home on oral iron supplementation 3 times a day. Have asked patient to follow-up with primary care provider, Dr. Travis in the next 1 week. She will need a CBC at that time. Will need to discuss further whether patient warrants further workup such as colonoscopy in the outpatient setting. Patient was instructed to monitor carefully for evidence of acute bleeding. She is to return to [facility] emergency room if she does have bleeding, worsening symptoms or other concerns. Patient verbalizes understanding. Appears to be in no acute distress at time of discharge. This is a general summation of the patients hospital course. Please refer to the medical record if additional detail is needed. Total discharge time greater than 35 minutes Problems: (1) Asthma (2) GERD (gastroesophageal reflux disease) (3) Breast cancer (4) Hypertension Status: Chronic (5) History of CHF (congestive heart failure) Status: Chronic (6) Anemia Status: Acute (7) Systolic murmur Code Status Full Code Home Meds Active Scripts Ferrous Sulfate (Ferrous Sulfate) 324 Mg Tablet., 324 MG PO TID for 30 Days, # 90 TAB Prov:[place] APRN 05/16/16 Reported Medications Fluticasone Propionate (Flonase Allergy Relief 50 mcg/actuation Nasal) 9.9 Ml Alba.susp, 1 SPRAY FLORI DAILY 05/14/16 Albuterol Sulfate (Proair HFA 90 mcg/actuation) 8.5 Gm Hfa.aer.ad, 1 PUFF INH Q6H Y for SHORTNESS OF AIR 05/14/16 Mometasone Furoate (Nasonex) 120 Alba/17 G Alba, 2 SPRAY EA NOSTRIL DAILY 05/14/16 Lisinopril (Lisinopril) 10 Mg Tablet, 5 MG PO DAILY 05/14/16 Trimethoprim (Trimethoprim) 100 Mg Tablet, 100 MG PO HS 05/14/16 Acetaminophen (Tylenol) 325 Mg Tablet, 325 MG PO Q4HPRN Y for PAIN 04/29/16 Calcium Carb & Cit/Vitamin D3 (Calcium + D3 ER Tablet) 1 Each Tablet.er, 1 TAB PO DAILY 04/29/16 Pravastatin Sodium (Pravastatin Sodium) 40 Mg Tablet, 40 MG PO DAILY, TAB 10/17/13 Clopidogrel (Plavix) 75 Mg Tablet, 75 MG PO DAILY, TAB 10/17/13 Omeprazole (Prilosec) 20 Mg Capsule.dr, 20 MG PO DAILY 03/04/12 Fexofenadine Hcl (Carol) 180 Mg Tablet, 180 MG PO DAILY 10/31/09 Face to Face Encounter I met with patient on the day of dismissal and discussed follow up appointments , medications, and safety plan. Discharge Disposition Stable Copies To 1: RAIN TRAVIS SAMER MD 05/16/16 1655: Hospital Course I saw and examined the patient personally, reviewed her chart, lab results, imaging studies, vital signs, discussed it with the CR FRAME NAILER/PA, I agree with their documentation. Repeat hemoglobin 8.9 this afternoon, no signs of bleeding, facility no hematochezia or melena, no hematemesis, no hematuria. Given the patient age she'll need to have colonoscopy as soon as possible as outpatient. She denies any chest pain or shortness of breath, nausea or vomiting, fever or chills, headache or dizziness. She is alert oriented 3, no acute distress, HEENT atraumatic normocephalic, skin is pale, no rash Heart normal S1 and S2, good peripheral perfusion, lungs to auscultation bilaterally without wheezing. Abdomen soft and sent and nontender. Problems: Home Meds Active Scripts Ferrous Sulfate (Ferrous Sulfate) 324 Mg Tablet.dr, 324 MG PO TID for 30 Days, # 90 TAB Prov:P[place] Estefany HASTINGS 05/16/16 Reported Medications Fluticasone Propionate (Flonase Allergy Relief 50 mcg/actuation Nasal) 9.9 Ml Alba.susp, 1 SPRAY FLORI DAILY 05/14/16 Albuterol Sulfate (Proair HFA 90 mcg/actuation) 8.5 Gm Hfa.aer.ad, 1 PUFF INH Q6H Y for SHORTNESS OF AIR 05/14/16 Mometasone Furoate (Nasonex) 120 Alba/17 G Alba, 2 SPRAY EA NOSTRIL DAILY 05/14/16 Lisinopril (Lisinopril) 10 Mg Tablet, 5 MG PO DAILY 05/14/16 Trimethoprim (Trimethoprim) 100 Mg Tablet, 100 MG PO HS 05/14/16 Acetaminophen (Tylenol) 325 Mg Tablet, 325 MG PO Q4HPRN Y for PAIN 04/29/16 Calcium Carb & Cit/Vitamin D3 (Calcium + D3 ER Tablet) 1 Each Tablet.er, 1 TAB PO DAILY 04/29/16 Pravastatin Sodium (Pravastatin Sodium) 40 Mg Tablet, 40 MG PO DAILY, TAB 10/17/13 Clopidogrel (Plavix) 75 Mg Tablet, 75 MG PO DAILY, TAB 10/17/13 Omeprazole (Prilosec) 20 Mg Capsule.dr, 20 MG PO DAILY 03/04/12 Fexofenadine Hcl (Carol) 180 Mg Tablet, 180 MG PO DAILY 10/31/09 Copies To 1: RAIN TRAVIS JULIE V APRN May 16, 2016 13:57 NIMESH PEOPLES MD May 16, 2016 15:55 Procedures No known history of procedures. Encounters Encounter Location Arrival/Admit Date Discharge/Depart Date Attending Provider Discharged Inpatient [facility] 05/14/16 4:54pm 05/16/16 3:54pm NIMESH PEOPLES MD Departed Emergency Room [facility] 04/29/16 11:57am 04/29/16 1: 27pm YANIV ZABALA APRN
--- OUTSIDE RECORDS SUMMARY | 2016-08-23 20:13 | XMS REPORT | Referral Summary ---
Author Author [facility] [place], Family [facility] Organization [facility] [place], [facility] Address Unknown Phone Unavailable Care Team Providers Care Candy Cutter Hand Name Role Phone Rosette Travis Primary Care Physician [phone] Encounter Date(s): 06/22/16 - 06/22/16 [facility] [place], [address] [place] [address]- Discharge Disposition: 01-Home or Self Care Attending Physician: Toña Travis DO Admitting Physician: Toña Travis DO Vital Signs Most recent to 1 oldest [Reference Range]: Temperature Tympanic 36.8 degC [36.6-38.1 degC] (06/22/16 2:27 PM) Peripheral Pulse 98 bpm Rate [60-100 bpm] (06/22/16 2:27 PM) Respiratory Rate 18 br/min [14-20 br/min] (06/22/16 2:27 PM) Blood Pressure 126/60 mmHg [90-140/60-90 mmHg] (06/22/16 2:27 PM) SpO2 96 % (06/22/16 2:27 PM) Problem List Condition Effective Dates Status [...] J45.901, # 360 mL, 6 Refill(s), Pharmacy: [id number], 3 mL Inhalation q6hr,PRN: Shortness of Breath/Wheezing,Instr:DX J45.901 Start Date: 06/14/15 Status: Ordered Carol Allergy mg, Oral, Daily, 0 Refill(s) Start Date: 10/30/13 Status: Ordered clopidogrel 75 mg oral tablet See Instructions, TAKE 1 TABLET EVERY DAY, # 90 tabs, 3 Refill(s), eRx: [facility] Start Date: 05/28/16 Status: Ordered denosumab 60 mg/mL subcutaneous solution 60 mg, SubCutaneous, q6mo, # 1 mL, 0 Refill(s) Start Date: 10/19/15 Status: Ordered ferrous sulfate 325 mg, Oral, TID, 0 Refill(s) Start Date: 05/17/16 Status: Ordered fluticasone 50 mcg/inh nasal spray 2 sprays, Nasal, Daily, # 3 Each, 3 Refill(s), Pharmacy: [facility] Start Date: 10/26/15 Status: Ordered ipratropium 42 mcg/inh (0.06%) nasal spray See Instructions, USE 2 SPRAYS NASALLY THREE TIMES DAILY, # 60 mL, 3 Refill(s), eRx: [facility], USE 2 SPRAYS NASALLY [...] omeprazole 20 mg oral delayed release capsule See Instructions, TAKE 1 CAPSULE EVERY DAY, # 90 caps, 3 Refill(s), eRx: [facility] Start Date: 05/28/16 Status: Ordered pravastatin 80 mg oral tablet See Instructions, TAKE 1 TABLET EVERY DAY, # 90 tabs, 3 Refill(s), eRx: [facility], TAKE 1 TABLET EVERY DAY Start Date: 02/15/16 Status: Ordered trimethoprim 100 mg oral tablet See Instructions, TAKE 1 TABLET EVERY DAY, # 90 tabs, 3 Refill(s), eRx: [facility] Start Date: 05/28/16 Status: Ordered Ventolin HFA 90 mcg/inh inhalation aerosol 2 puffs, Inhalation, q4hr, as needed for wheezing, # 1 Each, 6 Refill(s), Pharmacy: [id number], PLEASE KEEP ON HOLD FOR PT TO VISUAL SPECIALIST WHEN NEEDED, 2 puffs Inhalation q4hr,x30 days,PRN:as needed for wheezing Start Date: 05/02/16 Stop Date: 11/28/16 Status: Ordered Results No data available for this section Immunizations Given and Recorded Vaccine Date Status Refusal Reason tetanus/diphth/pertuss (Tdap) adult/adol 11/04/14 Given influenza virus vaccine, inactivated 03/28/16 Given influenza virus vaccine, inactivated 02/18/15 Given influenza virus vaccine, inactivated1 02/23/14 Recorded influenza virus vaccine, live 02/05/13 Given influenza virus vaccine, live 03/13/12 Given influenza virus vaccine, live 10/14/11 Given pneumococcal 13-valent conjugate vaccine 02/18/15 Given [...] Smoking Status Never smoker Assessment and Plan No data available for this section
--- NOTE | 2016-08-23 20:23 | NUR ---
PROVIDER ORVILLE CRAWFORD IN ROOM W/ PT.
[2016-08-23] MEDS ORDERED: ALBUTEROL INH.SOLN. 2.5mg/3ml (0.083%) Neb. AEROSOL ONE (20:30)
--- NOTE | 2016-08-23 20:32 | ERPDOC ---
Departure Disposition Decision Date: Aug 23, 2016 Disposition Decision Time: 22:51 Disposition: 01 DISCHARGED HOME, SELF-CARE Impression Impression Impression: Primary Impression: Dyspnea Dyspnea type: dyspnea on exertion Qualified Codes: R06.09 - Other forms of dyspnea Severity: Moderate Condition: Stable Seen By: Mid-level only Referrals: RAIN TREVIÑO DO (Family) Patient Instructions: Dyspnea (ED) Problems/Meds/Labs Reviewed?: Yes Medications reviewed and manag: Yes Additional Instructions: I want you to start using the nebulizer treatments every 4 hours as needed for shortness of breath. Start the Prednisone as prescribed if the shortness of breath does not improving in the next 24-48 hours. Notify your primary care provider's office in the morning regarding the Levaquin to see if they want you to continue to take this. Return to Er with any further issues/concerns. Follow up care ordered?: Yes Mental Status: Alert Scripts Prednisone (Prednisone) 20 Mg Tablet 20 MG PO BIDWM, #10 TAB 0 Refills Take 1 tablet, by mouth, 2 times a day with meals. Prov: ZINA JEAN LABOR TRAINING MANAGER 08/23/16 HPI - Dyspnea General Chief Complaint: Dizzy Stated Complaint: ALLERGIC REACTION TO MEDS Time Seen by Provider: 20:23 Source: patient Exam Limitations: no limitations HPI - Dyspnea Initial Comments She was evaluated in the clinic yesterday and diagnosed with a sinus infection. Was started on Levaquin and had a dose yesterday morning and a dose this morning as well. Today she has felt weak and dizzy. When she gets up to walk she feels like her heart is beating hard and fast. She has had some SOA and does have a history of asthma. Has had some wheezing. Denies any chest pain at all or fevers/chills. Is concerned that she is having an allergic reaction to the Levaquin. She has taken this in the past however, last in March of 2016. Occurred At: home Onset/Timing: Gradual Duration: 12-24 hrs Severity: moderate Prior Episodes/Possible Cause: no prior episodes Associated Symptoms: malaise, shortness of breath, weakness, DENIES: chest pain , cough, diaphoresis, fever/chills, headaches, loss of appetite, nausea/vomiting , rash, seizure, syncope Hx of Similar Symptoms: No Allergies: Coded Allergies: cephalexin (Verified Allergy, Severe, DIARRHEA, 08/23/16) Penicillins (Verified Allergy, Unknown, UNKNOWN, 08/23/16) Sulfa (Sulfonamide Antibiotics) (Verified Allergy, Unknown, UNKNOWN, ) alprazolam (Verified Allergy, Unknown, UNKNOWN, 08/23/16) doxycycline (Verified Allergy, Unknown, UNKNOWN, 08/23/16) erythromycin base (Verified Allergy, Unknown, UNKNOWN, 08/23/16) codeine (Verified Adverse Reaction, Mild, "MAKES ME CRAZY", 08/23/16) hydrocodone bit (Verified Adverse Reaction, Mild, "MAKES ME CRAZY", 08/23/16 ) morphine (Verified Adverse Reaction, Mild, "MAKES ME CRAZY", 08/23/16) Past History Past Medical History Metabolic: cancer, hypertension, other ENMT: allergies, sinusitis Cardiac: CHF Respiratory: asthma GI: GERD Female: other Surgical History General: colonoscopy, other Reproductive/: hysterectomy, other Family History Family PMH: FOUND: other Vaccines Hx Influenza Vaccination: Yes (03/2016) Hx Pneumococcal Vaccination: Yes (02/2014) Social History Second Hand Exposure: Yes Substance Use Type: does not use Alcohol Intake: none Current Occupational Status: retired Review of Systems Constitutional Constitutional: dizziness, fatigue, weakness, DENIES: chills, fever Eyes Vision: DENIES: blurring, double vision ENMT Ears: DENIES: drainage, pain Sinuses: DENIES: congestion, rhinorrhea Mouth/Throat: DENIES: painful swallowing, scratchy throat, sore throat Cardiovascular Cardiac: dyspnea on exertion, DENIES: chest pain, orthopnea Rhythm/Rate: irregular beat, palpitations Vascular: DENIES: pedal edema, unilateral swelling Pulmonary Respiratory: DENIES: cough, dyspnea, sputum, tachypnea GI Upper Abdomen: DENIES: nausea, pain, vomiting Lower Abdomen: DENIES: constipation, diarrhea, pain Integumentary Skin: DENIES: rash Neurological General: DENIES: headache, numbness, tingling, weakness Physical Exam General General Nourishment: well nourished, well developed, appears stated age, no acute distress, adult General Body Habitus: well groomed Vitals and Pain First Documented Vital Signs Date Time Temp Pulse Resp B/P Pulse Ox O2 Delivery O2 Flow Rate FiO2 08/23/16 20:10 97.2 103 20 138/62 97 Room Air Weight: Kilograms: Height (feet): 5 Height (inches): 1.00 Triage Pain Scale: RN VS reviewed by Provider: Yes Normal Exams: ENMT: No facial trauma, nasal exudates, pharyngeal erythema, or exudates are noted Neck: Full range of motion, without adenopathy, JVD, bruits or thyromegaly CV: Regular rate and rhythm, without murmur or gallop, Pulses 2+ all extremities, capillary refill, <2 seconds all ext., no pedal edema noted Abdomen: Bowel sounds positive, soft, non-tender, non-distended, no hepatosplenomegaly, masses or bruits noted Lymphatic: No lymphadenopathy, or lymphedema noted Integumentary: No rashes, hives, or bruising noted Neurologic: Patient is alert, and oriented, cranial nerves, motor/sensory/ cerebellar, exams w/o gross deficits, to observation Psychiatric: Patient exhibits, appropriate attention, emotion and affect Respiratory (brief) Respiratory: FOUND: other (Does have slight wheezing throughout, is tachypneic but speaking in complete sentences, O2 sats are 100% on RA. ) Differential Diagnoses Considering: Acute NV, Acute Respiratory Failure, Asthma Exacerbation, Pneumonia, Viral Syndrome, Other (allergic reaction) Progress Results/Orders Orders Procedure Category Date Status Time EKG EKG 08/23/16 Taken Troponin I W LAB 08/23/16 Complete Hemolysis Index Cbc W/Auto LAB 08/23/16 Complete Diff-Reflex Manual Bmp - Basic Metabolic LAB 08/23/16 Complete Panel Iv Lock (Ed Only) EDM 08/23/16 Transmitted 20:27 Chest, Pa & Lateral RAD 08/23/16 Taken Albuterol Sulfate PHA 08/23/16 Complete (Proventil 2.5 Mg/3 Ml 20:30 Methylprednisolone PHA 08/23/16 Complete Sod Succ (Solu-Medrol 23:00 Lab Results Laboratory Tests Test 08/23/16 20:37 White Blood Count 5.9T/MM3 Red Blood Count 3.16M/MM3 Hemoglobin 9.6GM/DL Hematocrit 31.9% Mean Corpuscular Volume 100.9UM3 Mean Corpuscular Hemoglobin 30.4UUG Mean Corpuscular Hemoglobin Concent 30.1GM/DL RDW Standard Deviation 44.0FL Platelet Count 386T/MM3 Mean Platelet Volume 8.8UM3 Immature Granulocyte % (Auto) 0.3% Neutrophils (%) (Auto) 71.7% Lymphocytes (%) (Auto) 16.0% Monocytes (%) (Auto) 10.9% Eosinophils (%) (Auto) 0.9% Basophils (%) (Auto) 0.2% Absolute Immature Granulocyte (auto 0.02T/MM3 Absolute Neutrophils (auto) 4.2T/MM3 Absolute Lymphocytes (auto) 0.9T/MM3 Absolute Monocytes (auto) 0.6T/MM3 Absolute Eosinophils (auto) 0.1T/MM3 Absolute Basophils (auto) 0.0T/MM3 Turbidity < 20 Sodium Level 136MEQ/L Potassium Level 4.7MEQ/L Chloride Level 101MEQ/L Carbon Dioxide Level 23MEQ/L Anion Gap 12MEQ/L Blood Urea Nitrogen 14.0MG/DL Creatinine 0.8MG/DL Glomerular Filtration Rate Calc 69 BUN/Creatinine Ratio 18RATIO Glucose Level 128MG/DL Calculated Osmolality 265MOSM/KG Calcium Level 9.7MG/DL Icterus Index < 2 Troponin I < 0.012ng/ml Chemistry Specimen Hemolysis < 15 Medications Current ED Medications Albuterol Sulfate (Proventil 2.5 Mg/3 ml) 2.5 mg O ONCE AEROSOL Last administered on 08/23/16t 20:53; Start 08/23/16 at 20:30; Stop 08/23/16 at 20:31; Status DC Methylprednisolone Sodium Succinate (Solu-Medrol) 125 mg O ONCE IV ; Start 08/23 at 23:00; Stop 08/23/16 at 23:01; Status DC Progress Progress WBC is normal. Hgb is 9.6. She had been admitted to [facility] in April for anemia and severe iron deficiency anemia. Is taking daily iron and her hgb is trending back up. She states that it was 9.8 in late July. CMP and troponin today are normal. Chest xray is clear. She did get up and walk around in the room and is feeling better. Still a little unsteady but does well walking in room. Will go ahead and discharge to home. Her symptoms have only been going on for the last 2 days with her sinus pressure and this is likely a viral illness. She is allergic to most antibiotics so will have her contact her PCP in the morning regarding continuation of the Levaquin. She does not want to start Prednisone until she speak with her PCP as well. Will send her with a Rx for this. Albuterol nebs at home as well. Xray Xray : Reason for Exam: dyspnea Xray: CXR PA/Lat Interpretation: Normal ZINA JEAN APRN Aug 23, 2016 20:32
[2016-08-23] MEDS ORDERED: IPRA42SP EA NOSTRIL (20:36)
[2016-08-23] MEDS ORDERED: LEVO750T46 PO (20:36)
[2016-08-23] MEDS ORDERED: PRAV80TA23 PO (20:36)
--- NOTE | 2016-08-23 20:37 | NUR ---
LAB LAB AT CHAIR SIDE FOR BLOOD DRAW.
[2016-08-23] MEDS ORDERED: FERR-70 PO (20:40)
[2016-08-23] MEDS ORDERED: ALBU2.5V7 AEROSOL (20:40)
[2016-08-23] MEDS ORDERED: DENO60DI SQ (20:40)
[2016-08-23] MEDS ORDERED: FLUT1DIS3 ORAL INH (20:43)
[2016-08-23] MEDS ORDERED: LISI-625 PO (20:43)
[2016-08-23] MEDS ORDERED: FLUT16SP EA NOSTRIL (20:43)
--- OUTSIDE RECORDS SUMMARY | 2016-08-23 20:54 | XMS REPORT | Continuity of Care Document ---
Author Author [facility] Organization [facility] Address Unknown Phone Unavailable Support Name Relationship Address Phone ELIER MENDEZ MD Caregiver [address] [place] [address] [place] [phone] AURORA RALPH MD Caregiver [address] [place] [address] [place] [phone] JOEL KASSIE Next Of Kin Unknown [phone] Insurance Providers Payer Name Policy Number Subscriber Name Relationship Medicare [id number] Theodora Forbes 19 Self [facility] [id number] Theodora Forbes 19 Self Advance Directives Directive [...] Days 10/26/13 10/26/13 Discontinued Mometasone Furoate 1 Florien EA NOSTRIL TWICE A DAY 04/07/14 Active [...] F (96.8 - 99.1) Temperature (Calculated Celsius) 35.40020 degrees C (36.0 - 37.3) Pulse Rate [...] Bacteria August 06, 2009 2:01pm 4+ - DIRECTOR OF EXHIBITS Urine Bilirubin October 17, 2013 10:45pm Negative [...] 06, 2009 2:01pm Cult set up - [facility] Urine Glucose (UA) October 17, 2013 [...] August 06, 2009 2:01pm 3-5 /HPF - [facility] Urine Specific [place] October 17, 2013 10:45pm 1.025 - Has specimen been collected/obtained? Y Urine Squamous Epithelial Cells August 06, 2009 2:01pm Moderate - [facility] Urine Turbidity October 17, 2013 10:45pm Sl cloudy - Has specimen been collected/obtained? Y Urine Urobilinogen October 17, 2013 10:45pm 0.2 EU/DL - Has specimen been collected/obtained? Y Urine WBC August 06, 2009 2:01pm 50-200 /HPF - [facility] Urine pH October 17, 2013 10:45pm [...] COMPLETE CBC W/AUTO DIFF WBC completed 07/26/14 [id number] ITEM OR SERVICE completed 07/26/14 [id number] ITEM OR SERVICE completed 07/26/14 PROPOFOL INJ 500 MG/50ML completed 07/26/14 [id number]"RINGERS LACTATE INFUSION, UP TO 1000 CC" completed 07/26/14 COMPREHEN METABOLIC PANEL completed 08/02/14 Encounters Encounter Location Date/Time Discharged [facility] 08/31/14 7:30am Registered [facility] 08/02/14 11:08am Registered [facility] 06/07/14 9:26am
--- OUTSIDE RECORDS SUMMARY | 2016-08-23 20:55 | XMS REPORT | Continuity of Care Document ---
Author Author [facility] Organization [facility] Address Unknown Phone Unavailable Allergies Medications Problems Procedures Results Encounters ACCT No. Visit Date/Time Discharge Status Pt. Type Provider Facility Loc./Unit Complaint [id number] 07/22/2013 10:25:00 07/22/2013 23 :59:59 CLS Outpatient [id number] 07/15/2013 13:56:00 07/15/2013 23 :59:59 CLS Outpatient [id number] 06/22/2013 13:12:00 06/22/2013 23 :59:59 CLS Outpatient [id number] 06/01/2013 15:15:00 06/01/2013 23 :59:59 CLS Outpatient [id number] 05/28/2013 12:00:00 05/28/2013 23 :59:59 CLS Outpatient
[2016-08-23 20:56] LABS: ANION GAP 12 MEQ/L (5-15); BUN/CREATININE RATIO 18 RATIO (6-26); CALCIUM 9.7 MG/DL (8.4-10.2); CHLORIDE 101 MEQ/L (98-107); CO2 - CARBON DIOXIDE 23 MEQ/L (22-30); CREATININE 0.8 MG/DL (0.7-1.2); GLOMERULAR FILTRATION RATE 69; GLUCOSE 128 MG/DL (65-110); POTASSIUM 4.7 MEQ/L (3.6-5); SODIUM 136 MEQ/L (134-144)
--- OUTSIDE RECORDS SUMMARY | 2016-08-23 20:56 | XMS REPORT | Continuity of Care Document ---
Author Author [facility] Organization [facility] Address Unknown Phone Unavailable Support Name Relationship Address Phone ELIER MENDEZ MD Caregiver [address] [place] [address] [place] [phone] AURORA RALPH MD Caregiver [address] [place] [address] [address] [place] [phone] JOEL KASSIE Next Of Kin Unknown [phone] Insurance Providers Payer Name Policy Number Subscriber Name Relationship Medicare [id number] Theodora Forbes 19 Self [facility] [id number] Theodora Forbes 19 Self Advance Directives Directive [...] Days 10/26/13 10/26/13 Discontinued Mometasone Furoate 1 Shirley EA NOSTRIL TWICE A DAY 04/07/14 Active [...] F (96.8 - 99.1) Temperature (Calculated Celsius) 36.22989 degrees C (36.0 - 37.3) Temperature Source [...] 07, 2014 8:38pm LAB TEST FORM REQUEST [id number] - Lymphocytes # (Auto) July 26, 2014 [...] Bacteria August 06, 2009 2:01pm 4+ - MANAGER GIFT Urine Bilirubin October 17, 2013 10:45pm Negative [...] 06, 2009 2:01pm Cult set up - [facility] Urine Glucose (UA) October 17, 2013 [...] August 06, 2009 2:01pm 3-5 /HPF - MANAGER GIFT Urine Specific [place] October 17, 2013 10:45pm 1.025 - Has specimen been collected/obtained? Y Urine Squamous Epithelial Cells August 06, 2009 2:01pm Moderate - MANAGER GIFT Urine Turbidity October 17, 2013 10:45pm Sl cloudy - Has specimen been collected/obtained? Y Urine Urobilinogen October 17, 2013 10:45pm 0.2 EU/DL - Has specimen been collected/obtained? Y Urine WBC August 06, 2009 2:01pm 50-200 /HPF - [facility] Urine pH October 17, 2013 10:45pm [...] SUBQ TISSUE 20 SQ CM/< completed 04/27/14 [id number]"EQUAL TO 48 SQ. IN., WITHOUT ADHESIVE BORDER, EACH DR completed E&M LEVEL - FACILITY completed 04/27/14 E&M LEVEL - FACILITY completed 05/25/14 METABOLIC PANEL TOTAL CA completed 06/07/14 Encounters Encounter Location Date/Time Registered [facility] 06/07/14 9:26am Registered [facility] 05/25/14 8:24am Registered [facility] 04/27/14 7:53am
--- NOTE | 2016-08-23 21:00 | NUR ---
XRAY PT GONE TO XRAY VIA WHEEL CHAIR.
[2016-08-23 21:04] LABS: BASOPHILS % (AUTO) 0.2 % (0-2); EOSINOPHILS # (AUTO) 0.1 T/MM3 (0-0.5); EOSINOPHILS % (AUTO) 0.9 % (0-4); HCT - HEMATOCRIT 31.9 % (36-46); HGB - HEMOGLOBIN 9.6 GM/DL (12-16); IMMATURE GRANULOCYTE # (AUTO) 0.02 T/MM3 (0.00-0.03); IMMATURE GRANULOCYTE % (AUTO) 0.3 % (0.0-0.5); LYMPHOCYTES # (AUTO) 0.9 T/MM3 (1-4.8); MEAN CORPUSCULAR HGB 30.4 UUG (26-34); MEAN CORPUSCULAR HGB CONC(MCHC 30.1 GM/DL (31-37); MEAN CORPUSCULAR VOLUME 100.9 UM3 (80-100); MEAN PLATELET VOLUME 8.8 UM3 (9.4-12.4); MONOCYTES # (AUTO) 0.6 T/MM3 (0-0.8); MONOCYTES % (AUTO) 10.9 % (0-9.0); NEUTROPHILS #(AUTO)-ABSOLUTE 4.2 T/MM3 (1.8-7.7); NEUTROPHILS % (AUTO) 71.7 % (33-66); RED BLOOD COUNT 3.16 M/MM3 (4.00-5.20); WBC - WHITE BLOOD COUNT 5.9 T/MM3 (4.5-11.0)
--- NOTE | 2016-08-23 21:17 | NUR ---
XRAY PT BACK FROM XRAY VIA WHEEL CHAIR.
--- NOTE | 2016-08-23 21:18 | NUR ---
TELEMETRY SINUS TACH THROUGHOUT W/O ECTOPY
[2016-08-23] MEDS ORDERED: PRED20TA PO (22:54)
[2016-08-23 23:14] VITALS: BP 127/59; PULSE 102; RESP 24; TEMP 97.2; O2SAT 96
--- NOTE | 2016-08-23 23:14 | NUR ---
DISCHARGE PT GIVEN INSTRUCTIONS FOR DYSPNEA W/ RX X1 PREDNISONE. PT VERBALIZED UNDERSTANDING AND SIGNED FORM, PT LEFT ER ALERT, VS CHARTED AMBULATORY W/O ASSIST IN NO ACUTE DISTRESS.
--- NOTE | 2016-08-24 08:37 | DI ---
INDICATION: ITS.REASON: CHEST PAIN PROCEDURE: CHEST 2-VIEWS UPRIGHT (PA \T\ LAT) Encounter: Initial COMPARISON: May 14, 2016 FINDINGS: The lungs are stable with chronic bilateral hilar retraction and volume loss with areas of scarring. No focal consolidative pneumonia. There is no pleural effusion or pneumothorax. The heart size, mediastinal contours and pulmonary vascularity are unchanged. Calcified hilar granulomas. IMPRESSION: Stable chest without acute cardiopulmonary disease. .
== END 2016-08-23 23:14 | disposition home or self-care (01) ==
LOC: ED 20:04
DX: R42 Dizziness and giddiness (principal); R53.1 Weakness; R06.09 Other forms of dyspnea; R06.2 Wheezing; R00.0 Tachycardia, unspecified; R00.2 Palpitations
CPT/HCPCS: 36415; 71020; 80048; 84484; 85025; 93005; 94640; 99284; J7611

== ENCOUNTER 2016-10-30 09:24 | Inpatient (IN) ==
[2016-10-30] MEDS ORDERED: LEVOFLOXACIN PB 500 MG/100 ML BAG IV ONE (09:26)
[2016-10-30] MEDS ORDERED: LIDOCAINE 1% (10mg/ml) 2mL INJ PF SDV ID ONE (09:26)
[2016-10-30 09:53] VITALS: BMI 25.0
[2016-10-30] MEDS ORDERED: INDOCYANINE GREEN 25mg INJECTION ONE (10:18)
[2016-10-30] MEDS ORDERED: BUPIVACAINE 0.25%/EPI 1:200,000 30ml SDV ONE (10:18)
[2016-10-30] MEDS: LR 1,000 ML IV SCH ×2 (10:30→15:26)
[2016-10-30] MEDS ORDERED: Levalbuterol 0.63mg/3ml NEB AEROSOL ONE (10:41)
[2016-10-30] MEDS ORDERED: ONDANSETRON 4 MG/2 ML INJECTION IVP PRN ×2 (10:45→15:49)
[2016-10-30] MEDS ORDERED: NS 1,000 ML IV SCH (10:45)
--- NOTE | 2016-10-30 10:45 | Anesthesia Preoperative Report ---
Anesthesia Preoperative Record - Date and Time Date: 10/30/16 Preoperative Diagnosis: colon ca Proposed Procedure: robotic right colon resection NPO Since Date: 10/29/16 NPO Since Time: 00:00 Allergies/Adverse Reactions: Allergies Allergy/AdvReac Type Severity Reaction Status Date / Time cephalexin Allergy Severe DIARRHEA Verified 10/30/16 09:56 alprazolam Allergy Unknown UNKNOWN Verified 10/30/16 09:56 doxycycline Allergy Unknown UNKNOWN Verified 10/30/16 09:56 erythromycin base Allergy Unknown UNKNOWN Verified 10/30/16 09:56 Penicillins Allergy Unknown UNKNOWN Verified 10/30/16 09:56 Sulfa (Sulfonamide Allergy Unknown UNKNOWN Verified 10/30/16 09:56 Antibiotics) codeine AdvReac Mild "MAKES ME Verified 10/30/16 09:56 CRAZY" morphine AdvReac Mild "MAKES ME Verified 10/30/16 09:56 CRAZY" hydrocodone bit AdvReac Mild "MAKES ME Uncoded 10/30/16 09:56 CRAZY" - Vital Signs Vital Signs: Temp Pulse Resp BP Pulse Ox 98.7 F 98 17 140/72 H 91 10/30/16 09:52 10/30/16 10:32 10/30/16 09:52 10/30/16 09:52 10/30/16 09:52 Height and Weight: Height 5 ft 2 in Weight 61.9 kg Body Mass Index 25.0 - Medications Inpatient Medications: Current Medications Heparin Sodium (Porcine) (Heparin Sq) 5,000 units SQ ONE TIME ONE Stop: 10/30/16 11:31 Lactated Ringer's (Lactated Ringers) 1,000 mls @ 30 mls/hr IV .Q24H MICHI Last Admin: 10/30/16 10:30 Dose: 30 mls/hr Sodium Chloride (Normal Saline) 1,000 mls @ 30 mls/hr IV .Q24H MICHI Last Admin: 10/30/16 10:40 Dose: 30 mls/hr Home Medications: Home Medications Medication Instructions Recorded Confirmed Type Omeprazole 20 mg PO DAILY #0 03/04/12 10/30/16 History Clopidogrel Bisulfate [Plavix] 75 mg PO HS #0 10/17/13 10/29/16 History Albuterol Sulfate [Proair Hfa] 1 puff INH Q6H PRN #0 05/14/16 10/29/16 History Albuterol Sulfate 2.5 mg AEROSOL Q6H PRN #0 08/23/16 10/29/16 History Denosumab [Prolia] 60 mg SQ [id number] #0 08/23/16 10/30/16 History Ferrous Sulfate 325 mg PO TIDWM #0 08/23/16 10/30/16 History Fluticasone Nasal [place] [Flonase] 1 spray EA NOSTRIL DAILY #0 08/23/16 History Fluticasone/Salmeterol [Advair 1 puff ORAL INH RTBID #0 08/23/16 10/30/16 History 250-50 Diskus] Ipratropium [place] 1 spray EA NOSTRIL DAILY #0 08/23/16 10/30/16 History Lisinopril 5 mg PO DAILY #0 08/23/16 10/30/16 History Pravastatin Sodium 80 mg PO HS #0 08/23/16 10/30/16 History Calcium 500 + D 1 tab PO DAILY 10/18/16 10/30/16 History Fexofenadine [Carol] 180 mg PO DAILY 10/30/16 10/30/16 History Is Patient on Beta Rayo?: No - Medical History Respiratory: Reports: Asthma (moderately controlled) Cardiovascular: Reports: Congestive Heart Failure, Hypertension DENIES: Angina, Myocardial Infarction Gastrointestional: Reports: Gastroesophageal Reflux Disease (well controlled with medication) Neuro/Musculoskeletal: Reports: Cerebrovascular Accident (TIA couple years ago. no residual effects.) Renal/Endocrine: DENIES: Diabetes Mellitus Type 1, Diabetes Mellitus Type 2, Renal Failure, Dialysis, Thyroid Disease, Weight Loss, Weight Gain, Other Other History: Reports: Blood Transfusions, Chemotherapy, Other (anemia) Anesthesia Reactions: other (slow to wake up) - Surgical History HEENT Surgeries: Reports: Eye Surgery (CAT. EXT. STEPHEN.), Other (BILAT CATARACTS) GI Surgery/Treatments: Reports: Appendectomy, Colonoscopy, EGD Reproductive Surgery/Treatment: Reports: Hysterectomy, Mastectomy (STEPHEN.) - Social History Smoking Status: Never smoker Substance Use Type: does not use Alcohol Intake: never - Pertinent Findings Laboratory: CBC and BMP 10/30/16 09:57 BMP 10/30/16 09:57 Sodium 137 Potassium 3.9 Chloride 100 Carbon Dioxide 27 BUN 6.0 L Creatinine 0.7 Glucose 111 H Calcium 9.6 Liver Function 10/30/16 Range/Units 09:57 Total Bilirubin 0.30 (0.20-1.30) MG/DL AST 15 (14-36) U/L ALT 27 (9-52) U/L Alkaline Phosphatase 65 (38-126) U/L Albumin 4.0 (3.5-5.0) G/DL EKG Rhythm: Normal Sinus Rhythm, Bundle Branch Block - Physical Exam Respiratory Exam: Present: wheezing (Right > Left), bilateral breath sounds equal Cardiovascular Exam: Present: regular rate and rhythm, no murmur - Airway Assessment Mallampati Score: II TMD: 2 Fingerbreadths Neck Extension: fair Teeth: partial lower dentures Overall Assessment: may be difficult intubation - ASA ASA Score: 3 - Plan Anesthesia: General Inhalation Gases - Discussion Discussion: Discussed risks/options/alternatives of anesthesia and questions answered. Patient consents. Nursing pain assessment noted. Present for Discussion: children Attestation Statement: Prior to the delivery of any anesthetic medication, I examined the patient, developed the plan, obtained the patient's consent and discussed the risk and benefits of the procedure with the patient/guardian. - Additional Information Seen by Anesthesia: Yes
[2016-10-30] MEDS ORDERED: HYDROMORPHONE 2 MG/ML INJECTION IVP PRN ×2 (10:48→15:49)
[2016-10-30] MEDS ORDERED: FentaNYL 250 MCG/5 ML INJECTION ONE (10:55)
[2016-10-30] MEDS ORDERED: ONDANSETRON 4 MG/2 ML INJECTION ONE (11:22)
[2016-10-30] MEDS ORDERED: DEXAMETHASONE 4 MG/ML INJECTION ONE (11:22)
[2016-10-30] MEDS ORDERED: NEOSTIGMINE 10 MG/10 ML INJECTION ONE ×2 (11:22→16:32)
[2016-10-30] MEDS ORDERED: GLYCOPYRROLATE 0.4 MG/2 ML INJECTION ONE ×2 (11:22→16:32)
[2016-10-30] MEDS ORDERED: PROPOFOL 20 ML ONE (11:22)
[2016-10-30] MEDS ORDERED: LIDOCAINE 2% (100mg/5mL) PF 5ml vl ONE (11:22)
[2016-10-30] MEDS ORDERED: HEPARIN SUB-Q 5,000 UNITS/0.5 ML INJECTION SQ ONE (11:30)
[2016-10-30] MEDS ORDERED: PHENYLEPHRINE INJ 10 MG/ML VIAL ONE (13:44)
[2016-10-30] MEDS ORDERED: INDOCYANINE GREEN 25mg INJECTION IVP ONE (15:29)
[2016-10-30] MEDS ORDERED: BUPIVACAINE 0.25%/EPI 1:200,000 30ml SDV ID ONE (16:03)
--- NOTE | 2016-10-30 16:33 | General Surgery Procedure Note ---
Date of Procedure: 10/30/16 Surgeon: Karla Inspector Circuitry Negative: Arthur Jorgensen APRN Postoperative Diagnosis: Ascending colon cancer Procedure: Robotic assisted laparoscopic right hemicolectomy Estimated Blood Loss: See Anesthesia Record.
[2016-10-30] MEDS ORDERED: HYDROMORPHONE PCA 30mg/30ml VIAL IV PRN (16:50)
[2016-10-30] MEDS ORDERED: Oxycodone/Acetaminophen 5/325 1 TAB PO PRN (16:50)
[2016-10-30] MEDS ORDERED: LR 1,000 ML IV SCH (16:50)
[2016-10-30] MEDS ORDERED: MIDAZOLAM 2mg/2ml INJECTION IVP PRN ×2 (17:59→21:34)
[2016-10-30] MEDS: D5-1/2NS with KCL 20mEq 1,000 ML IV SCH (20:03)
[2016-10-30] MEDS: PRAVASTATIN 40 MG TABLET PO SCH (22:53)
[2016-10-31] MEDS ORDERED: BUMETANIDE 2.5mg/10ml INJECTION IV ONE (02:03)
--- NOTE | 2016-10-31 08:19 | XRay Report ---
Indication: intubated PROCEDURE: XR chest 1V: Encounter: Initial Comparison: August 23, 2016 Findings: Chronic bilateral upper lobe scarring and volume loss is again noted. New diffuse subcutaneous emphysema with left abdominal area surgical deangelo noted. Endotracheal tube in place with the tip projecting 2.7 cm above the yary. No visible pneumothorax. Heart size and mediastinal contours are stable. Impression: 1. Endotracheal tube appears appropriately positioned. 2. Chronic pulmonary abnormalities. 3. Postoperative subcutaneous gas. .
[2016-10-31] MEDS: ALBUTEROL 2.5mg/3ml (0.083%) NEB AEROSOL PRN (08:27)
[2016-10-31] MEDS: PANTOPRAZOLE 40 MG INJECTION IVP SCH (08:56)
[2016-10-31] MEDS: ENOXAPARIN 40 MG/0.4 ML INJECTION SQ SCH (08:58)
[2016-10-31] MEDS: D5-1/2NS with KCL 20mEq 1,000 ML IV SCH ×2 (09:10→19:06)
--- NOTE | 2016-10-31 13:00 | Progress Note ---
DATE 10/31/2016 FINDINGS Theodora is still on a ventilator this morning. She is awake, alert and following commands. She is able to lift her head off the pillow. VITALS: Temperature 98.2. Pulse was increase this morning likely as a result of her anxiety. Earlier it was 85. This morning it was 103. Respiratory rate 16. SaO2 100% on 40% FiO2. CHEST: Clear to auscultation bilaterally. HEART: Regular rate and rhythm. Normal S1 and S2 without gallops, murmurs or clicks. ABDOMEN: Soft. Minimal incisional tenderness. There is some minimal bleeding present from the incision within her left lower quadrant of her abdomen. This is minimal and has stopped. LABORATORY/RADIOGRAPH EVALUATION The patient had a CBC today and her white count was slightly elevated at 13.7, most likely secondary to stress of surgery. Hemoglobin overall stable at 8.8. ABG was obtained and found to be appropriate. Will plan on extubation. A CMP was obtained and found to be within normal limits. ASSESSMENT 81-year-old female status post robotic-assisted laparoscopic right hemicolectomy , patient doing well. PLAN Will plan on extubation today. Will begin on some clear liquids today. Will likely keep in ICU today and transfer out tomorrow. Overall pleased with the patient's appearance this morning. MTDD
[2016-10-31] MEDS: LISINOPRIL 5 MG TABLET PO SCH (13:36)
[2016-10-31] MEDS: FEXOFENADINE 180 MG TABLET PO SCH (13:36)
[2016-10-31] MEDS: FLUTICASONE NASAL SPRAY 50mcg EA NOSTRIL SCH (13:37)
[2016-10-31] MEDS: IPRATROPIUM 0.06% EA NOSTRIL SCH (13:37)
--- NOTE | 2016-10-31 14:53 | Operative Note ---
DATE OF PROCEDURE 10/30/2016 SURGEON Serafin Acosta MD SUGAR REPROCESS OPERATOR HEAD Arthur Jorgensen APRN PREOPERATIVE DIAGNOSIS Invasive adenocarcinoma involving ascending colon. POSTOPERATIVE DIAGNOSIS Invasive adenocarcinoma involving ascending colon. PROCEDURE Robotic-assisted laparoscopic right hemicolectomy. ANESTHESIA General endotracheal EBL AND FLUIDS Please see chart. BRIEF HISTORY/INDICATIONS Theodora is an 81-year-old female who recently underwent a colonoscopy and unfortunately was found to have a malignancy/invasive adenocarcinoma involving her proximal ascending colon. The patient did undergo a CT scan of her chest, abdomen and pelvis that did not reveal any evidence for metastatic disease. The patient presents today to undergo surgical resection of her newly diagnosed colon cancer. For completeness, please refer to notes included in the patient' s chart. FINDINGS Upon laparoscopy, the liver edge was smooth without nodularities. Small bowel, omentum, colon, peritoneal surfaces which were visualized were without noted abnormalities. A standard robotic-assisted laparoscopic right hemicolectomy was completed without incident. DESCRIPTION OF PROCEDURE After informed consent was obtained, the patient was brought to the operative suite and placed on the table in supine fashion. The abdomen was then prepped and draped in sterile fashion. Formal time-out was then completed. 0.25% Marcaine with epinephrine injected just beneath the left costal margin. A 4-5 mm incision was then made through the area of analgesia. A Veress needle was then introduced through this small incision into the peritoneal cavity. Pneumoperitoneum was established to a patient pressure of 15 mmHg utilizing carbon dioxide. Next, I elected to place the camera port at the proposed site for robotic arm 1. Patient had a prior midline incision and I therefore not to place the initial camera port near the midline location. 0.25% Marcaine with epinephrine was injected just beneath the left costal margin just lateral to the midclavicular region. A 2 cm incision was made overlying the area of analgesia. A 12-mm camera port was then advanced through this incision into the peritoneal cavity. Camera was then inserted. One could see the Veress needle as it coursed through the anterior abdominal wall. Veress needle was removed under direct visualization. Next, an additional 8 mm da Jessica port was then placed within the suprapubic region under direct visualization. Additional 8 mm AirSeal port was also placed within the left lower quadrant under direct visualization. Next, adhesiolysis was then performed laparoscopically. Utilizing a grasping Pean and laparoscopic scissors, the omentum which was adherent along the midline anterior abdominal wall was taken down under direct visualization. Once the adhesiolysis was completed, an additional 8 mm port was then placed within the epigastric region just to the left of midline. The camera port was then removed and a da Jessica stapler port was placed at the original camera site within the left lateral/midabdominal wall. Laparoscope was then inserted through the stapler port and the camera port was then advanced through the anterior abdominal wall just to the left of the umbilicus and slightly caudad. This area was preinjected with 0.25% Marcaine with epinephrine. The port was placed again under direct visualization. Next, the patient was then placed in Trendelenburg and rotated towards her left. Small bowel was then able to be dissected away from the right mesocolon. The patient had a considerable amount of omentum which was able be grasped and retracted in a cephalad fashion. Good visualization of the right colon was then present at this time. Robot was then docked perpendicularly from the patient's right. Next, hook cautery was placed in robotic arm 1, a Graptor grasper was then placed within robotic arm 3 within the epigastric region. Fenestrated bipolar grasper was then placed in robotic arm 2 within the suprapubic region. I then went to the console and began the operation. The right colon was grasped with the robotic arm and retracted laterally and anteriorly so that the right mesocolon was tented. One could then see the anatomic location of the origin of the right ileocolic vessels. The mesentery was then begun to be divided just inferior or caudad to the origin of the ileocolic vessels. Dissection was then continued with hook cautery through the mesentery just caudad to the ileocolic vessels. Mesentery was then scored with the use of electrocautery up to the terminal ileum. Next, a suction tip catheter was placed within robotic arm 1 and the retroperitoneal space was then began to be well delineated inferior to the ileocolic vessels. Next, the mesentery inferior to the ileocolic vessels was then divided under direct visualization with a vessel sealer up to the terminal ileum. Retroperitoneal space was then continued to be developed and the retroperitoneal structures were carefully dissected posteriorly as the mesocolon was lifted anteriorly. One then began to dissect beneath the ileocolic vessels. The duodenum was located just beneath the ileocolic vessels and was gently dissected down posteriorly bluntly as the mesocolon was being lifted anteriorly. Next a small opening was then created within the mesentery to the right colon just cephalad to the ileocolic vessels. The ileocolic vessels were then carefully dissected out. Two Hem-o-marta clips were then just placed proximally upon the ileocolic vessels at its origin. Ileocolic vessels were then divided distal to this utilizing the vessel sealer. Next attention was then directed towards the hepatic flexure. The hepatic flexure was more redundant than typical and unfortunately the hepatic flexure was adherent along the gallbladder and the inferior edge of the liver. Utilizing the grasper, the transverse colon was reflected caudally. The omentum at this time was also grasped and brought forth back caudally. Gastrocolic ligament was divided just to the right of the mid transverse colon. Gastrocolic ligament was then divided up to the hepatic flexure region. Hepatic flexure was then carefully dissected away from the gallbladder and inferior edge of the right lobe of the liver. The duodenal C-loop was identified at this location and was also gently dissected posteriorly as the hepatic flexure was being mobilized caudally and medially. Hepatic flexure was completely mobilized at this point in time. Next , attention was directed back toward the omentum. The omentum was then divided up to the mid transverse colon region. The omentum to the left of the mid transverse colon was reflected up into the upper abdomen. The mesentery also to the right of the mid transverse colon was reflected up onto the liver. A small window was then created within the transverse mesocolon to the right of the middle colic vessels. Transverse mesocolon was then divided down towards the ileocolic vessels. Retroperitoneal space was then continued to be developed and the right mesocolon was reflected anteriorly and the retroperitoneal space was then able to be dissected out from a medial to lateral fashion until dissection had been carried out all the way to just posterior to the white line of Toldt along the right pericolic gutter as well as to the hepatic flexure. At this point in time, the mesentery to the right colon had been completely divided and the mesentery had been dissected out laterally to the white line of Toldt as discussed above. Next, one could see that the terminal ileum was somewhat adherent into the right lateral pelvis. Terminal ileum was carefully lifted anteriorly and dissected away from the pelvis. Care was taken to not use electrocautery in the vicinity of the right ureter as it coursed up and over the iliac vessels. Next, the terminal ileum was then divided utilizing the robotic da Jessica stapler. The robotic da Jessica stapler was then reloaded and the transverse colon to the right of the middle colic vessels was also divided. At this point in time the terminal ileum, ascending colon, hepatic flexure was then completely dissected free and was grasped and placed up onto the surface of the liver. Prior areas of dissection were inspected and found to be completely hemostatic in nature. Attention was directed towards performing the anastomosis. Isoperistaltic xomi-uk-alte anastomosis was then performed robotically between the transverse colon and terminal ileum. First a small purchase of the antimesenteric portion of the teniae coli was obtained with a 3-0 silk followed by a seromuscular purchase of the terminal ileum about 3 cm proximal to the staple line. Next, an additional stay suture utilizing 3-0 Vicryl was then placed along the antimesenteric teniae coli of the transverse colon adjacent to the initial staple line followed by a seromuscular purchase of the terminal ileum along the antimesenteric border. There was now alignment of the antimesenteric portion of the terminal ileum along the antimesenteric portion of the transverse colon to a length of about 6 cm or more. The patient was then given ICG intravenously. Both the terminal ileum and transverse colon did fluoresce quite well all the way up to the original staple lines. There was no evidence for vascular compromise. Enterotomy and colotomy was then performed adjacent to the stay suture. The robotic stapler was then reloaded and placed within the enterotomy and colotomy and aligned along the antimesenteric border of the terminal ileum and transverse colon and fired. This resulted in a nice staple line between the transverse colon and terminal ileum. Staple line was inspected and found to be without evidence for bleeding. Next, attention was then directed towards closure of the enterotomy and colotomy. The enterotomy/ colotomy opening was closed in two layers. First, a running 3-0 V-Loc suture was utilized resulting in a nice imbrication of the edges of the opening. An additional row of Lembert 3-0 Vicryl sutures were then placed overlying the original suture line. This resulted in a two-layer closure of the enterotomy and colotomy. Once a nice closure had been completed, attention was then directed towards undocking. First, a needle count was performed and found to be correct. Robot was then undocked. The fascial opening at the camera port site as well as the stapler port site was closed in a [id number] fashion laparoscopically utilizing 0 Vicryl and a laparoscopic suture passer. The 8-mm ports were removed under direct visualization with the exception of the remaining supraumbilical 8 mm da Jessica port. A Wavy grasper had been placed through this port site and the staple line upon the portion of the right colon and terminal ileum that had been transected was grasped. Pneumoperitoneum was then removed and the remaining AirSeal port was then also removed. A small 5 cm incision was then made adjacent to the exit site of the da Jessica port within the suprapubic region. Dissection was then carried down to the underlying anterior rectus sheath. Through this small Pfannenstiel incision, the anterior rectus sheath was opened transversely. Peritoneum was then opened between the rectus muscles. An Raul wound retractor was then placed overlying the Wavy grasper and continued to be advanced over the Wavy grasper until it was placed within the peritoneal cavity protecting the wound edges. Next the Wavy grasper was then slowly withdrawn until one could see the staple line of the transected end of the terminal ileum. Allis clamp was utilized to grasp the terminal ileum and the terminal ileum, ascending colon, hepatic flexure was then delivered through this Raul wound retractor. Raul wound retractor was then removed. The fascial opening at the small Pfannenstiel incision was closed in two layers. First, the peritoneum and posterior rectus sheath was closed in a running fashion with #1 PDS. Anterior rectus sheath was then closed also in running fashion with #1 PDS. Subcutaneous tissue was then reapproximated. All skin incisions were then closed with deangelo. The patient was then sent to the ICU once deemed in stable condition. Additionally, it should be noted that Arthur Jorgensen APRN, was present throughout the entire case and played a pivotal role in providing assistance and exposure during the course of the procedure. CHAI
[2016-10-31] MEDS: ALBUTEROL/IPRATROPIUM 2.5mg-0.5mg/3ml NEB AEROSOL SCH ×2 (15:13→19:08)
[2016-10-31] MEDS: ONDANSETRON 4 MG/2 ML INJECTION IVP PRN (18:12)
[2016-10-31] MEDS: PRAVASTATIN 40 MG TABLET PO SCH ×2 (20:46→21:20)
[2016-11-01] MEDS: D5-1/2NS with KCL 20mEq 1,000 ML IV SCH ×3 (05:10→23:17)
[2016-11-01] MEDS: ALBUTEROL/IPRATROPIUM 2.5mg-0.5mg/3ml NEB AEROSOL SCH ×4 (07:10→19:16)
[2016-11-01] MEDS: PANTOPRAZOLE 40 MG INJECTION IVP SCH (08:05)
[2016-11-01] MEDS: ENOXAPARIN 40 MG/0.4 ML INJECTION SQ SCH (08:06)
[2016-11-01] MEDS: LISINOPRIL 5 MG TABLET PO SCH (08:12)
[2016-11-01] MEDS: FEXOFENADINE 180 MG TABLET PO SCH (08:12)
[2016-11-01] MEDS: FLUTICASONE NASAL SPRAY 50mcg EA NOSTRIL SCH (08:16)
[2016-11-01] MEDS: IPRATROPIUM 0.06% EA NOSTRIL SCH (08:30)
[2016-11-01] MEDS: ONDANSETRON 4 MG/2 ML INJECTION IVP PRN (10:16)
[2016-11-01] MEDS ORDERED: DiphenhydrAMINE 25 MG CAPSULE PO ONE (10:18)
[2016-11-01] MEDS ORDERED: ACETAMINOPHEN 325 MG TABLET PO ONE (10:18)
--- NOTE | 2016-11-01 10:34 | General Surgery Progress Note ---
Subjective Patient reports: no flatus (feeling weak. She will "spit up" if she gets to coughing too much. Abd pain worse with cough. She did walk a short distance this morgning. Denies chest pain.) - Vital Signs Last Vital Signs Temp 98.9 F 10/31/16 20:00 Pulse 97 11/01/16 06:00 Resp 32 H 11/01/16 09:33 BP 110/57 11/01/16 06:00 Pulse Ox 98 11/01/16 07:11 - Laboratory Result Diagrams: 11/01/16 06:04 11/01/16 07:46 Laboratory Tests 10/31/16 11/01/16 03:32 06:04 Hgb 8.8 L 7.4 L D - Pathology Pending - Abnormal Exam General: other (weak) Respiratory: rales Abdominal: hypoactive bowel sounds - Normal Exam General: awake, alert Abdominal: appropriately tender Wound/Stoma/Drain Assessment - Wound Management Lower Abdomen Wound Type: Surgical Incision Secondary Dressing: Gauze Pad, Bandaid Assessment and Plan (1) Cancer of cecum Current Visit: Yes Status: Acute (2) COPD (chronic obstructive pulmonary disease) Current Visit: Yes Status: Chronic Qualifiers: COPD type: unspecified COPD Qualified Code(s): J44.9 - Chronic obstructive pulmonary disease, unspecified Plan: HGB dropped to 7.4 from 8.8 yesterday, will transfuse 1 unit and check HGB after transfusion, continue daily labs No flatus, has some mild nausea. Will start clear liquids, anticipate she will take just sips. VSS although a little tachy, rate 100 when I was in the room, and SBP 90's to low 100's. Urine ouput marginally ok, keep the roach for now. Keep her in CCU Hospital Course Summary Disclaimer: The visit summary below is not to be considered part of the above Progress Note. Hospital Course: 10-30-2016 BRIEF HISTORY/INDICATIONS Theodora is an 81-year-old female who recently underwent a colonoscopy and unfortunately was found to have a malignancy/invasive adenocarcinoma involving her proximal ascending colon. The patient did undergo a CT scan of her chest, abdomen and pelvis that did not reveal any evidence for metastatic disease. The patient presents today to undergo surgical resection of her newly diagnosed colon cancer. 10-31-2013 ASSESSMENT 81-year-old female status post robotic-assisted laparoscopic right hemicolectomy , patient doing well. PLAN Will plan on extubation today. Will begin on some clear liquids today. Will likely keep in ICU today and transfer out tomorrow. Overall pleased with the patient's appearance this morning. 11/01/16 10:42 HGB dropped to 7.4 from 8.8 yesterday, will transfuse 1 unit and check HGB after transfusion, continue daily labs No flatus, has some mild nausea. Will start clear liquids, anticipate she will take just sips. VSS although a little tachy, rate 100 when I was in the room, and SBP 90's to low 100's. Urine ouput marginally ok, keep the roach for now. Keep her in CCU Sepsis Assessment - Evaluation Sepsis screening result: No Definite Risk - Focused Exam Vital Signs Pulse Resp BP Pulse Ox 11/01/16 09:33 32 H 11/01/16 07:11 16 98 11/01/16 06:00 97 26 H 110/57 99 11/01/16 05:00 97 22 107/53 100 11/01/16 04:00 97 22 103/54 99 11/01/16 03:00 97 22 98/54 98 11/01/16 02:16 20 11/01/16 02:00 101 H 22 105/54 98 11/01/16 01:00 101 H 22 112/57 97 11/01/16 00:00 101 H 22 109/55 100 10/31/16 23:47 162 H 10/31/16 23:00 99 21 95/46 100 Capillary refill: < 2-3 Seconds
[2016-11-01] MEDS: METOCLOPRAMIDE 10mg/2ml INJECTION IVP PRN ×2 (13:15→22:27)
--- NOTE | 2016-11-01 18:12 | Progress Note ---
DATE 11/01/2016 FINDINGS Theodora this afternoon was complaining of a component of some discomfort within her lower back. She also has had a component of some nausea and a small amount of emesis. PHYSICAL EXAMINATION VITAL SIGNS: Afebrile, normotensive. Last recorded vitals include temperature 99.0, pulse 99, respirations 16, blood pressure 117/56. HEENT: Normocephalic. Pupils are equally round and react to light and accommodation. CHEST: Coarse breath sounds bilaterally. A few rales noted. HEART: Regular rate and rhythm. ABDOMEN: Visualization does reveal the abdomen to be slightly more distended today. Palpation of the abdomen however reveals it to be soft. Patient had some minimal incisional tenderness but no evidence for involuntary guarding or rebound. LABORATORY/RADIOGRAPH EVALUATION Patient had a CBC today, and her white count is overall stable at 12.2. Hemoglobin did drop down to 7.4. Patient was transfused earlier today. BMP obtained and found to be essentially within normal limits. Sodium was slightly low at 132. ASSESSMENT An 81-year-old female status post robotic-assisted laparoscopic right hemicolectomy. Overall patient doing well. PLAN Will keep on clear liquids given her component of nausea and some distention. We did go ahead and transfuse the patient in the unit earlier today given her hemoglobin and overall status. We will obtain a KUB and upright tomorrow to assess for ileus. Otherwise, we will continue with current care. Patient is on breathing treatments. We will encourage incentive spirometry. [facility]
[2016-11-01] MEDS ORDERED: BUMETANIDE 2.5mg/10ml INJECTION IV ONE (18:30)
[2016-11-01] MEDS: PRAVASTATIN 40 MG TABLET PO SCH (21:39)
[2016-11-01] MEDS: ALBUTEROL 2.5mg/3ml (0.083%) NEB AEROSOL PRN (23:10)
[2016-11-01] MEDS: KETOROLAC 15 MG/ML INJECTION IVP PRN (23:14)
[2016-11-02] MEDS ORDERED: D5-1/2NS with KCL 20mEq 1,000 ML IV SCH (04:00)
[2016-11-02] MEDS: ALBUTEROL/IPRATROPIUM 2.5mg-0.5mg/3ml NEB AEROSOL SCH ×4 (06:36→18:53)
[2016-11-02] MEDS: KETOROLAC 15 MG/ML INJECTION IVP PRN ×3 (06:38→21:08)
--- NOTE | 2016-11-02 07:35 | General Surgery Progress Note ---
Subjective Patient reports: pain is less (worst with cough), flatus (a little this morning) , no bowel movement, shortness of breath (wheezing, RR 30's) Narrative: HGB improved to 10.2, 9.9 after 1 unit PRBC yesterday. Diuresed after Bumex early last evening Still very wheezy, SOB, tachypnic, will consult hospitalist - Vital Signs Last Vital Signs Temp 98.8 F 11/01/16 19:30 Pulse 104 H 11/02/16 07:01 Resp 30 H 11/02/16 07:01 BP 103/49 11/02/16 07:01 Pulse Ox 94 11/02/16 07:01 - Laboratory Result Diagrams: 11/02/16 04:46 11/02/16 04:46 Wound/Stoma/Drain Assessment - Wound Management Lower Abdomen Wound Type: Surgical Incision Secondary Dressing: Gauze Pad, Bandaid Assessment and Plan (1) Cancer of cecum Current Visit: Yes Status: Acute (2) COPD (chronic obstructive pulmonary disease) Current Visit: Yes Status: Chronic Qualifiers: COPD type: unspecified COPD Qualified Code(s): J44.9 - Chronic obstructive pulmonary disease, unspecified Hospital Course Summary Disclaimer: The visit summary below is not to be considered part of the above Progress Note. Hospital Course: 10-30-2016 BRIEF HISTORY/INDICATIONS Theodora is an 81-year-old female who recently underwent a colonoscopy and unfortunately was found to have a malignancy/invasive adenocarcinoma involving her proximal ascending colon. The patient did undergo a CT scan of her chest, abdomen and pelvis that did not reveal any evidence for metastatic disease. The patient presents today to undergo surgical resection of her newly diagnosed colon cancer. 10-31-2013 ASSESSMENT 81-year-old female status post robotic-assisted laparoscopic right hemicolectomy , patient doing well. PLAN Will plan on extubation today. Will begin on some clear liquids today. Will likely keep in ICU today and transfer out tomorrow. Overall pleased with the patient's appearance this morning. 11/01/16 10:42 HGB dropped to 7.4 from 8.8 yesterday, will transfuse 1 unit and check HGB after transfusion, continue daily labs No flatus, has some mild nausea. Will start clear liquids, anticipate she will take just sips. VSS although a little tachy, rate 100 when I was in the room, and SBP 90's to low 100's. Urine ouput marginally ok, keep the roach for now. Keep her in CCU Sepsis Assessment - Evaluation Sepsis screening result: No Definite Risk - Focused Exam Vital Signs Pulse Resp BP Pulse Ox 11/02/16 07:01 104 H 30 H 103/49 94 11/02/16 06:30 106 H 30 H 124/56 94 11/02/16 06:25 24 97 11/02/16 06:00 104 H 25 H 112/52 94 11/02/16 05:30 105 H 26 H 113/53 94 11/02/16 05:00 108 H 28 H 114/51 95 11/02/16 04:00 104 H 26 H 124/57 100 11/02/16 03:00 99 25 H 115/53 100 11/02/16 02:00 103 H 22 125/56 100 11/02/16 01:30 101 H 23 120/56 100 11/02/16 01:15 99 24 109/51 100 11/02/16 01:03 102 H 24 94/46 98 11/02/16 00:00 111 H 25 H 102/46 98 11/01/16 23:10 24 100 11/01/16 23:02 125 H 11/01/16 23:00 126 H 31 H 118/54 99 11/01/16 22:47 115 H 30 H 113/58 100 11/01/16 22:00 112 H 25 H 118/56 90 11/01/16 21:16 112 H 22 119/56 96 11/01/16 21:00 112 H 45 H 95 11/01/16 20:43 24 11/01/16 20:00 104 H 27 H 110/54 94 11/01/16 19:45 107 H 17 113/56 96 Capillary refill: < 2-3 Seconds
[2016-11-02] MEDS: NS 1,000 ML IV SCH ×2 (07:37→17:43)
--- NOTE | 2016-11-02 08:41 | XRay Report ---
Indication: post op abd distention and vomiting PROCEDURE: XR KUB w upright: Encounter: Initial Comparison: October 31, 2016 Findings: Extensive subcutaneous emphysema is again noted. No obvious free intraperitoneal air. Prominent gas-filled small and large bowel is seen diffusely throughout the abdomen with small bowel loops measuring up to 3.7 cm in diameter. Gas is present distally to the level of the rectum. Surgical skin deangelo are noted. Impression: [place] distention of small and large bowel consistent with a postoperative ileus. .
[2016-11-02] MEDS: FEXOFENADINE 180 MG TABLET PO SCH (08:53)
[2016-11-02] MEDS: LISINOPRIL 5 MG TABLET PO SCH (08:53)
[2016-11-02] MEDS: ENOXAPARIN 40 MG/0.4 ML INJECTION SQ SCH (08:54)
[2016-11-02] MEDS: IPRATROPIUM 0.06% EA NOSTRIL SCH (08:55)
[2016-11-02] MEDS: PANTOPRAZOLE 40 MG INJECTION IVP SCH (08:55)
[2016-11-02] MEDS: FLUTICASONE NASAL SPRAY 50mcg EA NOSTRIL SCH (08:55)
--- NOTE | 2016-11-02 09:41 | Consult Note ---
<LiJudith D - Last Filed: 11/02/16 10:02> Consult Information - Data of Consult Patient: known to practice within the last 3 years Consult date: 11/02/16 Requesting Physician: Serafin Acosta MD Primary Care Provider: Toña Travis DO Family Provider: Toña Travis DO - Consult Narrative Reason for consult: wheezing, COPD History of present illness: Theodora Childers is seen in consultation from Dr. Acosta for management of COPD. Theodora Childers was recently diagnosed with ascending colon cancer and underwent robotic-assisted laparoscopic right hemicolectomy on 10/30/16. She was placed on a ventilator for the procedure, but was able to be extubated on 10/31/16 and remains on 1L of oxygen. She has an extensive pulmonary history including moderate, persistent, chronic asthma, and sarcoidosis with lung scarring. A chest x-ray done on 10/31/16 showed chronic lung scarring. She received IV Bumex 2 mg on 11/01/16, but her wheezing has persisted. In addition, sodium has been steadily dropping, to a low of 130 this morning. IV fluids were changed to normal saline. In visiting with Theodora, she states that her breathing is "fair" and it's close to her baseline, perhaps a little bit worse. She is not alarmed by the wheezing or increased work of breathing. Her nurse states that she has been weaned down to 1 L of oxygen. She does not use oxygen at home. She was able to ambulate from CCU room 3 to room 5 with her sats only dropping to 90%. She denies coughing. Her abdominal pain "isn't too bad", and she's been passing flatus. ROS in entirety was a bit limited because the patient was very drowsy and I had to repeat questions. Review of Systems ROS unobtainable: due to mental status (very tired; had difficulty staying awake to answer all questions in their entirety) - Constitutional Constitutional: Absent: fever(s), headache(s) - EENMT Nose: Absent: obstruction Mouth/Throat: Absent: sores - Cardiovascular Cardiovascular: Absent: chest pain, palpitations Vascular: Absent: pedal edema - Respiratory Respiratory: Present: dyspnea (chronic), wheezing. Absent: cough - Gastrointestinal Gastrointestinal: Present: as per HPI - Genitourinary Genitourinary: Present: other (denies dysuria or changes in urination) - Musculoskeletal Musculoskeletal: Absent: joint swelling - Integumentary/Breasts Integumentary: Absent: wounds Breasts: other (hx right mastectomy) - Neurological Neurological: Present: weakness. Absent: headache(s) - Psychiatric Psychiatric: Absent: anxiety, depression - Allergic/Immunologic Allergic/Immunologic: Absent: seasonal rhinorrhea PFSH 1. Severe obstructive lung disease, sarcoidosis with lung scarring causing restrictive ventilatory effect and reduced diffusion capacity 2. Moderate persistent chronic asthma. 3. Non-Allergic rhinitis. 4. Ascending colon cancer (October 2016) 5. History of breast cancer status post lumpectomy and right mastectomy (2009), in remission 6. Congestive heart failure, diastolic; Echocardiogram on 05/17/16 shows EF 76% , mild diastolic dysfunction, mild tricuspid regurgitation, moderate pulmonary hypertension. 7. Hypertension 8. Iron deficiency anemia, history of blood transfusion 9. GERD 10. Generalized osteoarthritis. 11. TIA (2014) 12. Overweight Surgical History: Robotic-assisted laparoscopic right hemicolectomy on 10/30/16 ( Dr. Acosta). Colonoscopies: 10/19/16, 2011. Cystoscopy and urethral dilatation, 07/26/14. Right mastectomy, 10/31/2009, right lumpectomy August 2009. Hysterectomy, 1969. Appendectomy. Cataract removal Family History: Mother: Breast cancer, coronary artery disease, [place], hypertension, diabetes, obesity. Maternal grandmother: Breast cancer. 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 Travis Medications Home Medications Medication Instructions Recorded Confirmed Type Omeprazole 20 mg PO DAILY #0 03/04/12 10/30/16 History Clopidogrel Bisulfate [Plavix] 75 mg PO HS #0 10/17/13 10/29/16 History Albuterol Sulfate [Proair Hfa] 1 puff INH Q6H PRN #0 05/14/16 10/29/16 History Albuterol Sulfate 2.5 mg AEROSOL Q6H PRN #0 08/23/16 10/29/16 History Denosumab [Prolia] 60 mg SQ [id number] #0 08/23/16 10/30/16 History Ferrous Sulfate 325 mg PO TIDWM #0 08/23/16 10/30/16 History Fluticasone Nasal [place] [Flonase] 1 spray EA NOSTRIL DAILY #0 08/23/16 History Fluticasone/Salmeterol [Advair 1 puff ORAL INH RTBID #0 08/23/16 10/30/16 History 250-50 Diskus] Ipratropium [place] 1 spray EA NOSTRIL DAILY #0 08/23/16 10/30/16 History Lisinopril 5 mg PO DAILY #0 08/23/16 10/30/16 History Pravastatin Sodium 80 mg PO HS #0 08/23/16 10/30/16 History Calcium 500 + D 1 tab PO DAILY 10/18/16 10/30/16 History Fexofenadine [Carol] 180 mg PO DAILY 10/30/16 10/30/16 History Allergies Allergy/AdvReac Type Severity Reaction Status Date / Time cephalexin Allergy Severe DIARRHEA Verified 10/30/16 09:56 alprazolam Allergy Unknown UNKNOWN Verified 10/30/16 09:56 doxycycline Allergy Unknown UNKNOWN Verified 10/30/16 09:56 erythromycin base Allergy Unknown UNKNOWN Verified 10/30/16 09:56 Penicillins Allergy Unknown UNKNOWN Verified 10/30/16 09:56 Sulfa (Sulfonamide Allergy Unknown UNKNOWN Verified 10/30/16 09:56 Antibiotics) codeine AdvReac Mild "MAKES ME Verified 10/30/16 09:56 CRAZY" morphine AdvReac Mild "MAKES ME Verified 10/30/16 09:56 CRAZY" hydrocodone bit AdvReac Mild "MAKES ME Uncoded 10/30/16 09:56 CRAZY" Exam Vital Signs: Temp Pulse Resp BP Pulse Ox 98.8 F 104 H 30 H 103/49 94 11/01/16 19:30 11/02/16 07:01 11/02/16 07:01 11/02/16 07:01 11/02/16 07:01 Height: 1.57 m Weight: 65.7 kg Body Mass Index: 25.0 - Constitutional Present: mild distress, well nourished, well developed, other (drowsy but arousable) - Routine HEENT Exam Eye: Absent: conjunctival icterus, scleral injection ENT: Present: mucous membranes dry, oropharynx clear Comments: abrasion to right maxilla - Routine Neck Exam Present: supple. Absent: lymphadenopathy - Routine Chest/Breast/Axilla Exam Breast: Present: right mastectomy - Routine Respiratory Exam Present: accessory muscle use, prolonged expiratory phase, wheezes, diminished air movement. Absent: patient mechanically ventilated - Routine Cardiovascular Exam Present: S1, S2 - Routine Abdominal Exam Present: distended. Absent: normoactive bowel sounds (hypoactive) Comments: dressings intact - Routine Extremities Exam Present: no edema, pulses intact (pedal pulses are bounding), normal capillary refill - Routine Skin Exam Present: intact, dry, warm - Routine Neurological Exam Present: oriented X3 (when she is awake she answers questions appropriately, though not always thoroughly). Absent: alert (drowsy) - Routine Psychiatric Exam Present: normal affect, normal thought process Results - Labs CBC & Chem 7: 11/02/16 04:46 11/02/16 04:46 - ABG Interpretation ABG results: 10/31/16 06:55 ABG pH 7.410 ABG pCO2 42 ABG pO2 141 H ABG HCO3 27 H ABG Total CO2 27.9 H ABG O2 Saturation 99.0 H ABG Base Excess 1.7 Assessment and Plan (1) Cancer of ascending colon Current visit: Yes Status: Acute (2) Sarcoidosis of lung Current visit: Yes Status: Acute (3) Moderate persistent asthma Current visit: Yes Status: Acute (4) Scarring of lung Current visit: Yes Status: Acute (5) Hyponatremia Current visit: Yes Status: Acute (6) Hypocalcemia Current visit: Yes Status: Acute (7) Diastolic CHF Current visit: Yes Status: Acute (8) Moderate to severe pulmonary hypertension Current visit: Yes Status: Acute (9) Postoperative hypoxia Current visit: Yes Status: Acute DVT Prophylaxis: SCD's GI Prophylaxis: Protonix Assessment and Plan: Severe obstructive lung disease, sarcoidosis with lung scarring causing restrictive ventilatory effect and reduced diffusion capacity; Moderate persistent chronic asthma; moderate pulmonary hypertension -Patient reports that her breathing is close to her baseline. -Wean oxygen as able. Currently on 1 L. Continue with scheduled nebulized treatments -Home management includes Advair. She has nebulized treatments for rescue. She previously has been on steroids but has been quite a while. -Hesitant to start systemic steroids at this time because of potential delay in healing and increased risk of complications. Diastolic CHF -Repeat chest x-ray today to assess fluid status and to see if she needs additional diuresis. -She received Bumex 2 mg IV on 11/01/16 -She's had positive fluid balances each day since admission, and her weight is trending up, from 61.9 kg on 10/30/16 to 65.7 kg today. Hyponatremia -IV fluids were changed to normal saline. -Further adjustments pending results of chest x-ray Hypocalcemia -Calcium is trending down, could be dilutional -Reassess in am. Leukocytosis -Resolved, white count has trended down from 13.7-9.8 today. -Suspect stress response -Afebrile SIRS -criteria include tachycardia and tachypnea, which may be affected by underlying lung disease and exacerbated by major surgery -no evidence of infection -Overall, BP are stable though occasionally she has MAP of 60-70. Colon cancer, status post right hemicolectomy -Per attending Discussed with critical care nurse, Arthur Jorgensen APRN, and Dr. Bejarano. Thank you for this consultation. We'll follow Theodora along with you during her hospital course. Hospital Course Summary Disclaimer: The visit summary below is not to be considered part of the above Progress Note. Hospital Course: 10-30-2016 BRIEF HISTORY/INDICATIONS Theodora is an 81-year-old female who recently underwent a colonoscopy and unfortunately was found to have a malignancy/invasive adenocarcinoma involving her proximal ascending colon. The patient did undergo a CT scan of her chest, abdomen and pelvis that did not reveal any evidence for metastatic disease. The patient presents today to undergo surgical resection of her newly diagnosed colon cancer. 10-31-2013 ASSESSMENT 81-year-old female status post robotic-assisted laparoscopic right hemicolectomy , patient doing well. PLAN Will plan on extubation today. Will begin on some clear liquids today. Will likely keep in ICU today and transfer out tomorrow. Overall pleased with the patient's appearance this morning. 11/01/16 10:42 HGB dropped to 7.4 from 8.8 yesterday, will transfuse 1 unit and check HGB after transfusion, continue daily labs No flatus, has some mild nausea. Will start clear liquids, anticipate she will take just sips. VSS although a little tachy, rate 100 when I was in the room, and SBP 90's to low 100's. Urine ouput marginally ok, keep the roach for now. Keep her in CCU Sepsis Assessment - Evaluation Sepsis screening result: No Definite Risk - Focused Exam Vital Signs Pulse Resp BP Pulse Ox 11/02/16 07:01 104 H 30 H 103/49 94 11/02/16 06:30 106 H 30 H 124/56 94 11/02/16 06:25 24 97 11/02/16 06:00 104 H 25 H 112/52 94 11/02/16 05:30 105 H 26 H 113/53 94 11/02/16 05:00 108 H 28 H 114/51 95 11/02/16 04:00 104 H 26 H 124/57 100 11/02/16 03:00 99 25 H 115/53 100 11/02/16 02:00 103 H 22 125/56 100 11/02/16 01:30 101 H 23 120/56 100 11/02/16 01:15 99 24 109/51 100 11/02/16 01:03 102 H 24 94/46 98 11/02/16 00:00 111 H 25 H 102/46 98 11/01/16 23:10 24 100 11/01/16 23:02 125 H 11/01/16 23:00 126 H 31 H 118/54 99 11/01/16 22:47 115 H 30 H 113/58 100 11/01/16 22:00 112 H 25 H 118/56 90 Capillary refill: < 2-3 Seconds <Carlene Bejarano - Last Filed: 11/02/16 15:48> Consult Information - Data of Consult Requesting Physician: Serafin Acosta MD Primary Care Provider: Toña Travis DO Family Provider: Toña Travis DO - Consult Narrative History of present illness: I have independently evaluated and examined this patient. I reviewed the chart, the patient's history, and the PACKAGE WINDER's documented findings as above. We discussed and formulated the assessment and plan as above with additions as below: Mrs. Childers was evaluated in the ICU with family members at the bedside. Nursing reports that patient has ambulated short distances and oral intake is poor-current diet clear liquids. Urine output was down earlier but has improved after IV Lasix given around noon. Patient reports having flatus but no bowel movements. The patient denied dyspnea but her daughter thought her respiratory pattern looked somewhat labored and "panting" and indicated that the patient is avoiding taking deep breaths due to pain with inspiration. Low-grade tachycardia has been present persistently and is reported to be baseline; tachycardia is present prior to breathing treatments and albuterol does not aggravate heart rate. On examination the patient is drowsy but responds to questions appropriately. Respirations appear slightly labored with decreased inspiratory effort and faint diffuse wheezing anteriorly and posteriorly. Cardiac rhythm is regular with low-grade tachycardia. Abdomen is moderately distended, soft, and sparse bowel sounds are present. No edema is appreciated at the ankles. Able Bodied Seaman are strong bilaterally and the patient dorsiflexes and plantar flexes at the ankles weakly but symmetrically. Chest x-ray reviewed by myself revealing scarring more notable in the upper [place]cne[place] than lower, no infiltrate or evidence of volume overload. Laboratory data notable only for mild postoperative anemia (transfused 1 unit on 11/01), mild hyponatremia, and hypocalcemia-no recent albumin available. Nursing advised that PICC line is being placed in the event TPN is needed and due to poor IV access. Check phosphorus, magnesium, and albumin tomorrow morning in addition to labs previously ordered. Urine output improving after Lasix earlier today-prior to Lasix urine output was down to 10 and 5 mL per hour. The patient required Bumex yesterday to promote urine output and overall is up nearly 6 L and 4 kg from admission. Lasix scheduled twice daily. Review of home medications suggests no chronic diuretic use. Patient remained lethargic when I saw her, hopefully can minimize IV narcotics or eliminate them soon. [facility] Patient Stated Medical History Cerebrovascular Accident Yes: TIA couple years ago. no residual effects. Transient Ischemic Attacks ( Yes TIA) Cataracts Yes Hearing Loss Yes: HEARING AIDES Angina No Congestive Heart Failure Yes Hypertension Yes Myocardial Infarction No Asthma Yes: moderately controlled Sleep Apnea No Other Respiratory Yes: ALLERGIES Diabetes Mellitus Type 1 No Diabetes Mellitus Type 2 No Gastroesophageal Reflux Yes: well controlled with medication Disease Other GI Yes: LOOSE STOOLS Hx Incontinence Yes: LEAKAGE Hx Urinary Tract Infection Yes Anemia Yes Osteoarthritis Yes Other Musculoskeletal Yes: TIA, 2 yrs ago, no residual problems Shingles Yes Anesthesia Reactions Yes: SLOW TO WAKE, DOESNT TAKE MUCH Blood Transfusions Yes Chemotherapy Yes Other Yes: anemia Post Menopausal Yes Exam Vital Signs: Temp Pulse Resp BP Pulse Ox 96.8 F 109 H 24 115/57 96 11/02/16 12:00 11/02/16 12:00 11/02/16 14:30 11/02/16 12:00 11/02/16 14:30 Height: 1.57 m Weight: 65.7 kg Results - Labs CBC & Chem 7: 11/02/16 04:46 11/02/16 04:46 - ABG Interpretation ABG results: 10/31/16 06:55 ABG pH 7.410 ABG pCO2 42 ABG pO2 141 H ABG HCO3 27 H ABG Total CO2 27.9 H ABG O2 Saturation 99.0 H ABG Base Excess 1.7 Assessment and Plan (1) Cancer of ascending colon Current visit: Yes Status: Acute (2) Sarcoidosis of lung Current visit: Yes Status: Acute (3) Moderate persistent asthma Current visit: Yes Status: Acute (4) Scarring of lung Current visit: Yes Status: Acute (5) Hyponatremia Current visit: Yes Status: Acute (6) Hypocalcemia Current visit: Yes Status: Acute (7) Diastolic CHF Current visit: Yes Status: Acute (8) Moderate to severe pulmonary hypertension Current visit: Yes Status: Acute (9) Postoperative hypoxia Current visit: Yes Status: Acute Hospital Course Summary Disclaimer: The visit summary below is not to be considered part of the above Progress Note. Sepsis Assessment - Focused Exam Vital Signs Temp Pulse Resp BP Pulse Ox 11/02/16 14:30 24 96 11/02/16 14:00 22 11/02/16 12:00 96.8 F 109 H 27 H 115/57 97 11/02/16 11:47 16 11/02/16 11:30 111 H 32 H 116/57 95 11/02/16 11:00 106 H 25 H 121/54 96 11/02/16 10:30 104 H 25 H 112/56 97 11/02/16 10:15 22 95 11/02/16 10:00 103 H 22 102/51 94 11/02/16 09:30 106 H 24 103/53 96 11/02/16 09:00 109 H 43 H 111/52 90 11/02/16 08:30 109 H 31 H 108/51 96 11/02/16 08:17 98.4 F 116 H 33 H 132/56 95 11/02/16 08:01 86 L 11/02/16 07:01 104 H 30 H 103/49 94 11/02/16 06:30 106 H 30 H 124/56 94 11/02/16 06:25 24 97 11/02/16 06:00 104 H 25 H 112/52 94 11/02/16 05:30 105 H 26 H 113/53 94 11/02/16 05:00 108 H 28 H 114/51 95 11/02/16 04:00 104 H 26 H 124/57 100
--- NOTE | 2016-11-02 11:47 | XRay Report ---
Indication: wheezing PROCEDURE: XR chest 1V: Encounter: Initial Comparison: October 31, 2016 Findings: Chronic areas of scarring are again noted. Diffuse subcutaneous emphysema redemonstrated. No pneumothorax. Trace pleural effusions. No new consolidative pneumonia appreciated. Endotracheal tube has been removed. Heart size and mediastinal contours are stable. Chronic hilar enlargement and retraction. Impression: No focal pneumonia. Chronic pulmonary abnormalities. .
[2016-11-02] MEDS ORDERED: FUROSEMIDE 20 MG/2 ML INJECTION IVP ONE (12:16)
[2016-11-02] MEDS: NS FLUSH BAG 500ml IV ONE ×2 (20:56→21:00)
[2016-11-02] MEDS ORDERED: FUROSEMIDE 40 MG/4 ML INJECTION IVP SCH (21:00)
[2016-11-02] MEDS: FUROSEMIDE 40 MG/4 ML INJECTION IVP SCH (21:33)
[2016-11-02] MEDS: PRAVASTATIN 40 MG TABLET PO SCH (23:22)
[2016-11-02] MEDS ORDERED: HALOPERIDOL 5 MG/ML INJECTION IVP PRN (23:46)
[2016-11-03] MEDS ORDERED: HALOPERIDOL 5 MG/ML INJECTION IVP PRN (00:38)
[2016-11-03] MEDS: FUROSEMIDE 40 MG/4 ML INJECTION IVP SCH (02:23)
[2016-11-03] MEDS ORDERED: FALL RISK - PHARMACY CONSULT MC PRN (02:33)
[2016-11-03] MEDS: NS 1,000 ML IV SCH (03:50)
[2016-11-03] MEDS: KETOROLAC 15 MG/ML INJECTION IVP PRN ×2 (06:26→13:29)
[2016-11-03] MEDS: ALBUTEROL/IPRATROPIUM 2.5mg-0.5mg/3ml NEB AEROSOL SCH ×3 (07:39→15:24)
--- NOTE | 2016-11-03 09:10 | Progress Note ---
Subjective: Pt a bit somnolent, following directions but not answer questions well. Denies any cp but does report sob. Denies abdominal pain. Nurse reports pt is passing gas but no BMs yet. Objective Vital signs: Temp Pulse Resp BP Pulse Ox 98.9 F 114 H 24 125/57 98 11/03/16 04:00 11/03/16 07:00 11/03/16 07:40 11/03/16 07:30 11/03/16 07:40 Rhythm: Sinus Tachycardia Cardiac Ectopy: Occasional PVC's Body Mass Index: 25.0 - Constitutional Present: moderate distress, well nourished, well developed, somnolent, other ( drowsy but arousable) - Routine HEENT Exam Head: Present: normocephalic, atraumatic Eye: Present: EOMI - Routine Respiratory Exam Present: respiratory distress Comments: Coarse breath sounds throughout - Routine Cardiovascular Exam Present: RRR, no murmur, tachycardia - Routine Abdominal Exam Present: soft, non tender, distended Comments: hypoactive bowel sounds throughout - Routine Extremities Exam Present: no edema, non tender. Absent: cyanosis, clubbing - Routine Skin Exam Present: dry, warm Results - Labs CBC & Chem 7: 11/03/16 05:11 11/03/16 05:11 - ABG Interpretation ABG results: 10/31/16 11/02/16 06:55 18:58 ABG pH 7.410 7.450 ABG pCO2 42 41 ABG pO2 141 H 149 H ABG HCO3 27 H 29 H ABG Total CO2 27.9 H 29.8 H ABG O2 Saturation 99.0 H 99.0 H ABG Base Excess 1.7 4.1 H Assessment and Plan (1) Cancer of ascending colon Current visit: Yes Status: Acute (2) Sarcoidosis of lung Current visit: Yes Status: Acute (3) Moderate persistent asthma Current visit: Yes Status: Acute (4) Scarring of lung Current visit: Yes Status: Acute (5) Hyponatremia Current visit: Yes Status: Acute (6) Hypocalcemia Current visit: Yes Status: Acute (7) Diastolic CHF Current visit: Yes Status: Acute (8) Moderate to severe pulmonary hypertension Current visit: Yes Status: Acute (9) Postoperative hypoxia Current visit: Yes Status: Acute Assessment and Plan: SIRS Criteria -Pt is tachypneic, tachycardic and has WBC elevation -Order-->Blood cx's, lactate, crp, esr, procal, repeat CXR, viral panel, UA -Unclear fluid status, weight up but no edema on cxr and no LE edema, will hold diuretics for now -No clear source of infection but since pt is acutely ill and possibly immunocompromised with prednisone tx at home for sarcoidosis, will start vanc/ zosyn and await work up -Abdominal source with recent hemicolectomy is lower on the list as abdominal exam is benign but cont. to monitor closely Hypoxic respiratory failure -Hx of sarcoidosis, COPD, pulm htn-->Likely acutely getting worse -Concern for PE with tachycardia and hypoxia, high risk with age, malignancy and recent surgery-->will get CTA -Requiring bipap use to ease work of breathing, ABG shows respiratory alkalosis d/t hyperventilation, O2 sats stable -Cont. bipap support, breathing tx's -Systemic steroids will likely be needed but not great option since recent surgery, will discuss with surgery -Pt follows with for pulm at clinic Diastolic CHF -Repeat chest x-ray, order BNP -Unclear fluid status, weight up but no edema on cxr and no LE edema, will hold diuretics for now Normocytic Anemia -Hgb stable, s/p 1u pRBC on 11/01 -Order iron panel, Cont. to monitor Demand Ishcemia/Type II MD -No cp, ECG shows sinus tachy with old findings of RBBB -Trop 0.216, cont. to trend Thrombocytosis -Plts 510, likely reactive -Cont. to monitor Hyponatremia -IV fluids were changed to normal saline. -Will order work up with serum/urine osm, urina Na Hypocalcemia -Calcium is trending down, ~7.7 when corrected for albumin, possibly d/t acute illness -Order ical, PTH, vitamin D lvl, Mg level 1.7 Hypophosphatemia -Phos 1.2, replace -Can also present with hyperparathyroid vs. resp alkalosis Colon cancer -status post right hemicolectomy Sepsis Assessment - Evaluation Sepsis screening result: Severe Sepsis Risk - Focused Exam Vital Signs Temp Pulse Resp BP Pulse Ox 11/03/16 07:40 24 98 11/03/16 07:30 125/57 11/03/16 07:00 114 H 33 H 134/64 94 06/17/17 06:30 115 H 33 H 135/60 96 11/03/16 06:00 115 H 35 H 140/61 H 97 11/03/16 05:30 116 H 32 H 124/59 98 11/03/16 05:00 115 H 31 H 110/54 97 11/03/16 04:30 118 H 33 H 129/60 97 11/03/16 04:00 98.9 F 115 H 30 H 130/57 97 11/03/16 03:30 116 H 28 H 129/59 96 11/03/16 03:00 117 H 30 H 144/65 H 95 11/03/16 02:30 116 H 39 H 149/55 H 93 11/03/16 02:15 117 H 30 H 152/69 H 93 11/03/16 02:00 113 H 28 H 149/68 H 94 11/03/16 01:45 114 H 25 H 153/65 H 95 11/03/16 01:30 108 H 23 106/53 95 11/03/16 01:15 109 H 23 100/53 95 11/03/16 01:02 111 H 26 H 117/57 99 11/03/16 01:00 109 H 23 99 11/03/16 00:45 112 H 26 H 96/50 98 11/03/16 00:30 113 H 22 109/67 100 11/03/16 00:15 115 H 31 H 136/63 98 11/03/16 00:00 98.2 F 115 H 31 H 133/60 98 11/02/16 23:45 115 H 31 H 127/60 97 11/02/16 23:30 117 H 38 H 126/59 92 11/02/16 23:15 117 H 26 H 111/55 98 11/02/16 23:00 119 H 28 H 113/54 97 11/02/16 22:56 119 H 29 H 114/53 98 11/02/16 22:55 119 H 25 H 98 11/02/16 22:47 113 H 30 H 91/42 97 11/02/16 22:30 117 H 29 H 90/40 97 11/02/16 22:01 122 H 29 H 100/49 98 11/02/16 22:00 122 H 30 H 98 11/02/16 21:30 130 H 47 H 152/65 H 97 Respiratory exam: Present: accessory muscle use, prolonged expiratory phase, wheezes, diminished air movement. Absent: patient mechanically ventilated Cardiovascular exam: Present: S1, S2 Capillary refill: < 2-3 Seconds Hospital Course Summary Disclaimer: The visit summary below is not to be considered part of the above Progress Note. Hospital Course: 10-30-2016 BRIEF HISTORY/INDICATIONS Theodora is an 81-year-old female who recently underwent a colonoscopy and unfortunately was found to have a malignancy/invasive adenocarcinoma involving her proximal ascending colon. The patient did undergo a CT scan of her chest, abdomen and pelvis that did not reveal any evidence for metastatic disease. The patient presents today to undergo surgical resection of her newly diagnosed colon cancer. 10-31-2013 ASSESSMENT 81-year-old female status post robotic-assisted laparoscopic right hemicolectomy , patient doing well. PLAN Will plan on extubation today. Will begin on some clear liquids today. Will likely keep in ICU today and transfer out tomorrow. Overall pleased with the patient's appearance this morning. 11/01/16 10:42 HGB dropped to 7.4 from 8.8 yesterday, will transfuse 1 unit and check HGB after transfusion, continue daily labs No flatus, has some mild nausea. Will start clear liquids, anticipate she will take just sips. VSS although a little tachy, rate 100 when I was in the room, and SBP 90's to low 100's. Urine ouput marginally ok, keep the roach for now. Keep her in CCU 11/03/16 09:52 Pt looks ill, she is somnolent, sweating profusely, tachycardic, tahcypneic, wbc is up again. No clear source of infection but will do further work up for infection and start vanc and zosyn. Unclear fluid status, will hold diuretics. Will do CTA to rule out PE. 11/03/16 14:53
[2016-11-03] MEDS: PANTOPRAZOLE 40 MG INJECTION IVP SCH (09:35)
[2016-11-03] MEDS: ENOXAPARIN 40 MG/0.4 ML INJECTION SQ SCH (09:37)
[2016-11-03] MEDS: FEXOFENADINE 180 MG TABLET PO SCH (09:41)
[2016-11-03] MEDS: LISINOPRIL 5 MG TABLET PO SCH (09:41)
[2016-11-03] MEDS: FLUTICASONE NASAL SPRAY 50mcg EA NOSTRIL SCH (09:52)
[2016-11-03] MEDS: IPRATROPIUM 0.06% EA NOSTRIL SCH (09:54)
[2016-11-03] MEDS ORDERED: CEFEPIME 2 GM in NS 100 ML IV SCH (10:30)
--- NOTE | 2016-11-03 11:24 | Pharmacy Consult-Antibiotics ---
Pharmacy Consult-Vancomycin - Laboratory Information WBC 12.9 T/MM3 (4.5-11.0) H 11/03/16 05:11 BUN 8.0 MG/DL (7-17) D 11/03/16 05:11 Creatinine 0.6 MG/DL (0.7-1.2) L 11/03/16 05:11 Procalcitonin 0.07 NG/ML 11/03/16 09:57 I have calculated with the current lab data and with current height and weight to start the Vancomycin with a 1,750 mg iv bolus and then continue with Vancomycin 1,250 mg iv every 24 hours thereafter. The pharmacy will continue to monitor the Vancomycin troughs and the renal function and adjust the Vancomycin to maintain a serum level between 15 to 20 mcg/mL. Thanks for the Protocol, Gerald Espinal RP
--- NOTE | 2016-11-03 11:31 | Procedure Note ---
DATE OF SERVICE 11/02/2016 FINDINGS Theodora today did appear to have a little bit more difficulty with breathing. Upon questioning the patient, however, she really denied any element of abdominal pain. She stated that she has passed some flatus today. Patient states that her nausea had improved, and she was not experiencing nausea as she had yesterday. PHYSICAL EXAMINATION VITAL SIGNS: Patient has remained afebrile but is definitely more tachycardic. Pulse was 109 this morning. When I was in the room, it was in the high 90s to low 100s. Respiratory rate 24, blood pressure 115/57, SaO2 96% on 1 liter per nasal cannula. CHEST: Auscultation reveals coarse breath sounds bilaterally. Patient did have audible wheezing. HEART: Regular rate and rhythm. ABDOMEN: Abdomen does appear slightly distended. Palpation of the abdomen, however, revealed it to be soft and for the most part nontender. She did have some minimal incisional tenderness as one would expect postoperatively. There was, however, no evidence for guarding or rebound. LABORATORY/RADIOGRAPH EVALUATION Patient had a CBC today, and her white count remained stable at 9.8. Hemoglobin is stable/slightly improved at 10.2. She did not have bandemia but did have slightly increased neutrophils at 82%. BMP was obtained, and her sodium was slightly low at 130. KUB and upright was obtained today. I did review the films personally. She does have a fair amount of subcutaneous air as a result of the utilization of the AirSeal device during her robotic case. There was a component of some distention of both her small bowel and large bowel consistent with that of an ileus. ASSESSMENT An 81-year-old female with multiple significant associated medical comorbidities , status post robotic right hemicolectomy secondary to invasive adenocarcinoma. Overall, patient is stable but slow to improve. Perhaps slightly worse from a pulmonary standpoint. PLAN Given her history for COPD, sarcoidosis, and other associated medical comorbidities, we will go ahead and consult the hospitalist for medical management of this patient. Overall, I feel the patient is stable from a surgical standpoint. I do not feel that her tachycardia and tachypnea are the result of an intraabdominal process such as an anastomotic leak. She remains to be afebrile. She is not significantly tender upon palpation. Patient will continue to be followed closely. Dr. Whitney will be covering for me over the course of the weekend. I will resume care of the patient on Saturday. CHAI
[2016-11-03] MEDS: PHOSPHORUS 250 MG TABLET PO SCH ×2 (11:49→17:28)
[2016-11-03] MEDS ORDERED: HYDROCORTISONE SOD SUCC 100mg/2ml INJECTION IVP SCH (15:00)
[2016-11-03] MEDS ORDERED: IOHEXOL 350mg/ml 75ml INJECTION ONE (15:27)
[2016-11-03] MEDS ORDERED: NS 100 ML ONE (15:28)
[2016-11-03] MEDS ORDERED: SALINE FLUSH 10ml SYRINGE ONE (15:28)
[2016-11-03] MEDS ORDERED: [UNRECOGNIZED DRUG - OTHER] PO SCH (17:00)
[2016-11-03] MEDS ORDERED: SPIRIVA RESPIMAT PO SCH (18:00)
[2016-11-03 18:05] VITALS: TEMP 98.3
[2016-11-03] MEDS ORDERED: ETOMIDATE 20 MG/10 ML IVP ONE ×2 (18:57→19:00)
[2016-11-03] MEDS ORDERED: SUCCINYLCHOLINE 20mg/mL 10mL INJECTION IVP ONE ×2 (18:58→20:54)
[2016-11-03] MEDS ORDERED: CALCIUM CARBONATE 1250 MG/5 ML PO SCH (19:00)
[2016-11-03 19:17] VITALS: O2SAT 100
[2016-11-03] MEDS ORDERED: MONTELUKAST 10 MG TABLET PO SCH (20:00)
[2016-11-03] MEDS ORDERED: MIDAZOLAM 2mg/2ml INJECTION IVP ONE (20:17)
[2016-11-03 22:15] VITALS: BP 98/58; PULSE 105; RESP 22
--- NOTE | 2016-11-04 08:35 | CT Scan Report ---
Indication: possible PE PROCEDURE: CT angio pulm emboli / chest: Encounter: Initial Comparison: Chest x-ray from the same date Technique: Axial CT pulmonary angiographic phase images were performed through the chest after the administration of intravenous contrast. Coronal and Sagittal MIP reconstructed images were created and reviewed. Automated Exposure Control and Iterative Reconstruction dose reducing techniques were utilized. Contrast: Omnipaque 350 74 mL Findings: Pulmonary arteries: Exam is diagnostic to the subsegmental pulmonary arterial level. No filling defects identified to suggest a pulmonary embolus. Other findings: Pulmonary abnormalities consistent with sarcoidosis noted with numerous calcified granulomas, hilar enlargement and retraction with pleural thickening and scarring bilaterally. There is superimposed acute appearing consolidation in the left lower lobe with a trace left effusion. No pneumothorax. Extensive subcutaneous emphysema. No axillary adenopathy. Heart size is normal. Small pericardial effusion. The upper abdomen shows no acute findings. Impression: No pulmonary embolus. Left lower lobe pneumonia or aspiration. There is a preliminary report by virtual radi[employer]. .
[2016-11-04] MEDS ORDERED: TIOTROPIUM 18mcg/cap HANDIHALER ORAL INH SCH (09:00)
--- NOTE | 2016-11-04 23:17 | XRay Report ---
Indication: intubation/tube placement PROCEDURE: XR chest 1V: Encounter: Initial Comparison: Chest x-ray from today Findings: New endotracheal tube in place with the tip projecting 2.7 cm above the yary. Right IJ central venous catheter in place with the tip projecting over the lower SVC. Bilateral pulmonary abnormalities, most of which are chronic. No gross pneumothorax. Trace effusions. Scarring and bilateral hilar retraction again noted along with sequela of prior granulomatous disease in the mediastinum. Heart size is unchanged. Pulmonary vascularity cannot be well evaluated on a supine view. Subcutaneous emphysema in the chest and abdominal wall. Impression: New endotracheal tube appears appropriately positioned. .
--- NOTE | 2016-11-04 23:19 | XRay Report ---
Indication: post IJ insertion PROCEDURE: XR chest post-procedure 1V: Encounter: Initial Comparison: November 02, 2016 at 0729 Findings: New right IJ line in place with the tip projecting over the lower SVC. No pneumothorax or visible mediastinal hematoma. Chronically abnormal lungs appear grossly stable. Mediastinal contours and heart size are unchanged. Impression: New right IJ line appears appropriately positioned. .
--- NOTE | 2016-11-05 08:15 | Progress Note ---
DATE 11/03/2016 POSTOP DAY #4 HISTORY The patient is in the Intensive Care Unit. The patient denies any abdominal pain. The patient did pass some flatus overnight last night. The patient is tolerating a clear liquid diet in small amounts. The patient is receiving BiPAP for respiratory support at this time. She has had tachycardia and tachypnea. The hospitalist service is managing respiratory care for the patient as well as other medical care. INTAKE AND OUTPUT Urine output has been good. PHYSICAL EXAMINATION VITAL SIGNS: The patient has been afebrile. Pulse is 114. Respiratory rate is 33. Blood pressure is 125/57. Oxygen saturation is 94% on BiPAP support with FiO2 of 30. ABDOMEN: The patient does have dressings in place at the abdominal incisions. The abdomen is soft. Bowel sounds are hypoactive. The abdomen is nontender. LABORATORY DATA White blood cell count is 12,900. Hemoglobin is 10. Hematocrit is 33.3. IMPRESSION 1. Status post robotic-assisted laparoscopic right hemicolectomy on 10/30/2016. 2. Sarcoidosis of the lung. 3. Asthma. 4. Diastolic congestive heart failure. 5. Hypoxia. PLAN 1. Continue clear liquid diet for now. 2. Continue management of respiratory disease and cardiac disease as well as other medical problems by the hospitalist service. CHAI
--- NOTE | 2016-11-05 10:17 | Procedure Note ---
DATE OF PROCEDURE 11/02/2016 DIAGNOSES BEFORE PROCEDURE 1. Status post robotic assisted laparoscopic right hemicolectomy on 10/30/2016. 2. Sarcoidosis of lung. 3. Asthma. 4. Diastolic congestive heart failure. 5. Hypoxia. DIAGNOSES AFTER PROCEDURE 1. Status post robotic assisted laparoscopic right hemicolectomy on 10/30/2016. 2. Sarcoidosis of lung. 3. Asthma. 4. Diastolic congestive heart failure. 5. Hypoxia. PROCEDURE Insertion of right internal jugular multilumen central venous catheter. SURGEON Patrick Whitney MD ANESTHESIA Local DESCRIPTION OF PROCEDURE The patient was placed in her bed in the intensive care unit. The patient was placed in Trendelenburg position. The right side of the neck, right supraclavicular area, right infraclavicular area, right shoulder, suprasternal notch area, left side of the neck, left shoulder, left supraclavicular area and left infraclavicular area were all prepped with ChloraPrep solution. Sterile drapes were placed. An ultrasound device was used to examine the right internal jugular vein and right carotid artery. Skin at a percutaneous venipuncture site at the right side of the neck was infiltrated with 1% Xylocaine without epinephrine to provide local anesthesia. A small incision was made at this area. Percutaneous venipuncture of the right internal jugular vein was then performed with ultrasound guidance. The vein was entered and there was a good return of dark red nonpulsatile blood. A flexible guidewire was passed through the needle and through the internal jugular vein down into the superior vena cava. A 7-[place], triple-lumen, 20 cm long radiopaque polyurethane multilumen central venous catheter was then flushed with saline solution. The multilumen central venous catheter was then inserted into the right internal jugular vein and into the superior vena cava with a Seldinger technique. A Biopatch antimicrobial dressing was placed around the multilumen central venous catheter at the skin entrance site. The multilumen central venous catheter was secured to skin adjacent to the catheter insertion site with 3-0 silk sutures. A sterile Tegaderm dressing was applied to the multilumen central venous catheter at the insertion site. Sterile technique was maintained throughout the procedure. The surgeon wore sterile gown, gloves and mask during the procedure. The patient did appear to tolerate the procedure well. A portable upright chest x-ray was performed after the procedure. This chest x-ray did appear to show good position of the multilumen central venous catheter and no evidence of pneumothorax. MTDD
--- NOTE | 2016-11-05 11:35 | XRay Report ---
EXAM: XR KUB HISTORY: ileus LOCATION OF DICTATION: [place] COMPARISON: Prior KUB performed 11/02/2016. FINDINGS: The single view of the abdomen again shows diffuse gaseous distention of small and large bowel which appear upper limits of normal caliber. There is no change in the number or caliber of the distended bowel loops. Gas is seen in the rectal vault. The psoas muscle margins are well visualized. There is no obvious organomegaly or free intra-abdominal gas or fluid on these supine views. The osseous structures are stable. Surgical clips are seen over the left upper, mid and lower abdomen. There is again noted extensive subcutaneous emphysema in the abdominal wall. IMPRESSION: 1. Persistent generalized ileus pattern involving small and large bowel which may be postoperative in etiology suspicious for an adynamic ileus. 2. Persistent extensive subcutaneous emphysema in the abdominal wall which may be postsurgical in etiology. 3. Continued close follow-up is recommended. .
--- NOTE | 2016-11-05 14:36 | XRay Report ---
EXAM: XR chest 1V HISTORY: follow up pna/effusion LOCATION OF DICTATION: [facility] COMPARISON: No available studies for comparison. FINDINGS: There is a stable appearance of the right IJ indwelling central venous catheter. The lung mcneil are relatively hypoventilated. The cardiomediastinal silhouette is stable, the heart appears upper limits of normal size. The mediastinum is not widened. The trachea is midline. There are again noted calcified hilar lymph nodes bilaterally. Chronic fibrotic lung changes are again noted. There is some concern for developing superimposed acute patchy infiltrates in the perihilar regions, left greater than right. Trace bilateral pleural effusions are apparent. Again visualized are changes of left axillary node dissection. There are again noted postsurgical changes over the visualized abdomen and subcutaneous emphysema in the abdominal wall soft tissues. The osseous structures appear stable. IMPRESSION: 1. Chronic fibrotic changes with superimposed acute patchy infiltrates are suspected in the perihilar regions left greater than right. 2. Trace bilateral pleural effusions. 3. Stable right IJ central venous catheter. 4. Extensive subcutaneous emphysema and postsurgical changes are again seen in the abdominal wall soft tissues. .
== END 2016-11-03 20:55 | disposition short-term general hospital (02) | DRG 329 ==
LOC: SRG 09:24 → CCU 15:57
PROVIDERS: ADMIT Surgery; ATTEND Surgery